=== PATIENT | female | born 1960 | race Caucasian/White ===

== ENCOUNTER 2020-06-18 12:03 | Inpatient (IN) | payer OTHER, SELFPAY ==
[2020-06-18] VITALS (35 sets, daily range): BP systolic 108–161; BP diastolic 67–103; PULSE 53–84; RESP 12–28; TEMP 36.1–36.8; O2SAT 86–97
--- NOTE | ~2020-06-18 | XR_ITS ---
EXAMINATION: XR chest 2V DATE: 06/18/2020 12:24 INDICATION: Chest pain on exertion. TECHNIQUE: PA and lateral views of the chest were obtained. COMPARISON: None FINDINGS: The lungs are clear with no focal airspace opacities, pulmonary edema, pleural effusion or pneumothor ax. The cardiomediastinal silhouette is normal with small bilateral paracardial fat pads.. Mild to mo derate midthoracic predominant spondylosis. IMPRESSION: 1. No acute cardiopulmonary disease. Reviewed, dictated and finalized at location A.
--- NOTE | 2020-06-18 12:05 | ECG_ITS ---
Measurements Intervals [place] Rate: 75 P: 60 ME: 182 QRS: -3 QRSD: 94 T: 220 QT: 404 QTc: 453 Interpretive Statements SINUS RHYTHM BORDERLINE R WAVE PROGRESSION, ANTERIOR LEADS ST-T WAVE ABNORMALITY IN ANTEROLATERAL LEADS- CONSIDER ISCHEMIA BASELINE ARTIFACT- III, AVF, V3-V5 ABNORMAL ECG Electronically Signed On 06-18-2020 16:11:20 CDT by José Miguel Matthews D.O.
[2020-06-18 12:25] LABS: Basophils Absolute Auto 0.1 K/mm3 (0.0-0.1); Basophils Percent Auto 0.5 % (0.2-1.2); Eosinophils Absolute Auto 0.1 K/mm3 (0-0.3); Eosinophils Percent Auto 0.8 % (0-4.4); Hematocrit 41.1 % (37.0-47.0); Hemoglobin 13.8 g/dL (12.0-15.0); Immature Granulocyte Absolute 0.03 K/mm3 (0.00-0.031); Immature Granulocyte Percent A 0.3 % (0-0.5); Lymphocytes Absolute Auto 3.44 K/mm3 (0.9-3.2); Lymphocytes Percent Auto 35.8 % (18.3-44.2); Mean Corpuscular HGB Conc 33.6 g/dl (32-36); Mean Corpuscular Hemoglobin 29.8 pg (26-34); Mean Corpuscular Volume 88.8 fl (80-100); Mean Platelet Volume 9.3 fl (7.4-10.4); Monocytes Absolute Auto 0.4 K/mm3 (0.1-0.6); Monocytes Percent Auto 4.6 % (2.6-8.5); Neutrophils Absolute Auto 5.6 K/mm3 (1.3-6.7); Platelet Count Result 278 k/mm3 (150-375); Red Blood Count 4.63 M/mm3 (4.2-5.4); Red Cell Distribution Width 13.3 % (11.5-14.5); White Blood Count 9.6 K/mm3 (4.5-10.0)
[2020-06-18 12:39] LABS: Anion Gap 8 mmol/L (8-16); Blood Urea Nitrogen 15 mg/dL (7-17); Carbon Dioxide 27 mmol/L (22-30); Chloride 105 mmol/L (98-107); Estimated CRCL calculation 60 ml/min; Estimated Glomerular Filt Rate > 60; Glucose 171 mg/dL (65-105); Potassium 3.5 mmol/L (3.4-5.0); Sodium 140 mmol/L (137-145)
[2020-06-18 12:41] LABS: INR 0.9; Prothrombin Time 12.5 Seconds (11.1-14.7)
[2020-06-18 12:42] LABS: Partial Thromboplastin Time 27.7 SECONDS (22.3-36.8)
--- NOTE | 2020-06-18 12:46 | PC.NURSE ---
Dr. Edgar at bedside for pt assessment.
[2020-06-18] MEDS: ASPIRIN 81 MG CHEWABLE TABLET 324 MG PO (12:56)
[2020-06-18 13:03] LABS: Troponin I 0.318 ng/mL (0.000-0.034)
--- NOTE | 2020-06-18 13:06 | ED.CHESTPAIN ---
HPI - Chest Pain General Chief Complaint: Chest Pain Stated Complaint: think i had a mild heart attack yesterday Time Seen by Provider: 06/18/20 12:12 Source: patient and family Mode of arrival: ambulatory Limitations: no limitations History of Present Illness HPI narrative: Patient is 59 years old white female presents with retrosternal chest pain started yesterday while eating. [place] like food stuck in her esophagus lasted for 5 minutes, subsequently developed numbness of the right hand, headache, not feeling well generalized weakness, and feeling like she got washed out. The symptoms continued all day long yesterday and this morning. Currently patient complaining of retrosternal pressure feeling pain 3 out of 10. Denies any shortness of breath. Patient does not have any coronary risk factors, patient does not take medicine, does not smoke or drink. Related Data Home Medications Medication Instructions Recorded Confirmed No Home Medications 09/08/19 09/08/19 Allergies Allergy/AdvReac Type Severity Reaction Status Date / Time No Known Allergies Allergy Verified 06/18/20 12:04 Review of Systems Review of Systems: Narrative: CONSTITUTIONAL: Denies fever, chills, or sweats. EYES: Denies visual changes, redness, or discharge. ENT: Denies rhinorrhea, congestion, sore throat, or otalgia. CARDIOVASCULAR: Denies chest pain, palpitations, or edema. RESPIRATORY: Denies cough or dyspnea. GASTROINTESTINAL: Denies abdominal pain, nausea, vomiting, or diarrhea. GENITOURINARY: Denies dysuria or hematuria. SKIN: Denies rash or itching. MUSCULOSKELETAL: Denies back pain, joint pain, or myalgia. NEUROLOGIC: Denies headache, numbness, or weakness. PSYCHIATRIC: Denies anxiety or depression. [facility] Past Medical History Medical History Cervical spondylosis Chronic back pain HLD (hyperlipidemia) Hypertension Normal colonoscopy (~2012) Thyroid nodule Family History Family History Other Cerebrovascular accident Family history of congestive heart failure Social History Social History Smoking status: Never smoker Gender identity (if verbalized by the patient): Female Exam Narrative: Exam Narrative: General appearance: Well-developed, well-nourished Skin: Normal color Head: Normocephalic, nontraumatic Eyes: Clear conjunctiva ENT: Oropharynx normal, ears normal, nose normal Neck: Supple, nontender Chest and respiratory: Airway patent, no respiratory distress, no accessory muscle use Heart: Regular rate/rhythm Abdomen: Soft, nontender, no organomegaly, quiet bowel sounds Vascular: Normal peripheral pulses, normal capillary refill. Musculoskeletal: Normal range of motion, nontender back Neurologic: Alert and oriented ?3, [employer] is normal as tested, no gross motor deficit Course Course Emergency Course: Stable Consultations Consultation #1: DR LEEANN GIBSON Date: 06/18/20 Time: 14:53 Vital Signs Vital signs: Vital Signs Pulse Rate 78 06/18/20 12:11 Respiratory Rate 13 06/18/20 12:11 Pulse Oximetry 95 06/18/20 12:11 Temperature 36.8 C 06/18/20 12:14 Pulse Rate 71 06/18/20 13:45 Respiratory Rate 13 06/18/20 13:45 Blood Pressure 154/78 H 06/18/20 13:26 Pulse Oximetry 94 06/18/20 13:45 MDM - Chest Pain MDM Narrative Medical decision making narrative: Patient presents with chest pain. Could be secondary to esophageal obstruction which resolved in 5 minutes or coronary artery syndrome or anxiety related symptoms. Labs, EKG, chest x-ray Lab Data Result diagr
--- NOTE | 2020-06-18 13:14 | PC.NURSE ---
Provider at bedside to discuss results with pt.
[2020-06-18] MEDS: MORPHINE SULFATE (*CRX) 4 MG/ML INJ IV PUSH (13:20)
[2020-06-18] MEDS: ONDANSETRON INJ 4 MG/2 ML VIAL IV PUSH (13:20)
[2020-06-18] MEDS: METOPROLOL TARTRATE 25 MG TABLET PO ×2 (13:21→21:00)
[2020-06-18] MEDS: NITROGLYCERIN OINTMENT 1 INCH DOSE TRANSDERM (13:21)
[2020-06-18] MEDS: HEPARIN SOD/D5W 100 UNITS/ML 25,000 UNITS/250 ML BAG 7 UNITS IV CONT (14:25)
[2020-06-18] MEDS: HEPARIN SODIUM 5,000 UNITS/ML VIAL 3500 UNITS IV PUSH (14:25)
--- NOTE | 2020-06-18 15:09 | PM.CNCAR ---
Assessment and Plan Assessment and plan (1) Acute non-ST elevation myocardial infarction (NSTEMI): Code(s): I21.4 - Non-ST elevation (NSTEMI) myocardial infarction Status: Acute Assessment and Plan: Middle-aged healthy female with few risk factors for CAD admitted with prolonged chest discomfort starting yesterday. She appears to have a non-STEMI with EKG changes and elevated troponin. She is feeling much better, free of pain, after above treatment. Recommendation: Continue aspirin metoprolol and heparin Add statin Add lisinopril Check lipids EKG in the morning Cardiac catheterization on Saturday. If the patient becomes unstable will do the heart catheterization over the weekend with the emergency bottle label inspector team. Spoke to patient and , also spoke to son in law Kobe who is an EMT by phone. (2) Elevated blood sugar: Code(s): R73.9 - Hyperglycemia, unspecified Status: Acute Assessment and Plan: Blood sugar of 171 noted, check A1c (3) Elevated blood pressure reading: Code(s): R03.0 - Elevated blood-pressure reading, without diagnosis of hypertension Status: Acute Assessment and Plan: blood pressure was elevated on admission to the ER but has improved. 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 Edgar in the emergency room and the hospitalists for my advice and opinion regarding her non-STEMI in consultation. While eating lunch yesterday the patient developed some substernal discomfort like she had something stuck in her esophagus. This lasted all day and she also felt washed out, with a headache, a little tingling in the Right hand and a little nauseated. She has a history of GERD, and had some dietary indiscretions recently so thought this was GI discomfort this morning she found the discomfort was still present, about a 3/10. She had to go tell her 96-year-old mother that 1 of the mother's siblings had , and then came to the emergency room for evaluation. She was found to have a troponin of 0.3 and T-wave inversion in V 4 through V6 consistent with a non-STEMI. She was given nitro paste, metoprolol 25 mg p.o. x1, morphine aspirin and now is feeling better. She has been started on heparin drip. Previously the patient had no exertional limitations. has never needed treatment for hypertension, diabetes, or hyperlipidemia there blood pressure recently has been a little higher than normal for her. Nonsmoker. No family history of CAD. 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 Review of Systems Constitutional: Constitutional: Reports fatigue, Reports lethargy and Reports weakness Eyes: Eyes: Reports no additional eye complaints ENT: Denies nasal congestion Cardiovascular: Cardiovascular: Reports chest pain Respiratory: Respiratory: Denies dyspnea and Denies dyspnea on exertion Gastrointestinal: Gastrointestinal: Reports heartburn and Reports nausea Comments: has some problems when she eats gluten, eats a gluten free diet Genitourinary: Genitourinary: Denies hematuria Musculoskeletal: Musculoskeletal: Denies back pain Integumentary/Breasts: Skin/Breast: Denies rash Neurologic: Denies headache(s) Psychiatric: Psychiatric: Reports no additional psychiatric complaints PMFSH Past Medical History Medical History Cervical spondylosis Chronic back pain HLD (hyperlipidemia) Hypertension Normal colonoscop
[2020-06-18 15:45] LABS: Troponin I 0.282 ng/mL (0.000-0.034)
--- NOTE | 2020-06-18 16:18 | ADMGEN ---
This patient, Juliana Mcnulty, was admitted to IMU Room 200-01. Patient/family oriented to hospital policies and general routines including ID bracelet, bed and alarms, visiting hours, pain management, procedures, bathroom and other care routines, personal items, smoking policy, room service/diet, and visiting hours. Information on how to activate the Rapid Response Team has been discussed. Patient/Family are encouraged to report perceived risks to care and to ask questions if they do not understand what they are told or what they should do.
--- NOTE | 2020-06-18 18:00 | PM.IMHP ---
H&P: HPI History of Present Illness Date/Time: 06/18/20 18:00 Chief Complaint: Chest pain. Narrative: This is a pleasant 59-year-old female without any significant medical problems who presented to the emergency department earlier today from home with reports of chest pain. 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 As the rest of the day progressed she continued to have episodes of this discomfort associated with a flushing sensation, fatigue, nausea, and a slight headache. Hit 1 point in time she was having discomfort up into her shoulders and perhaps a bit of numbness. It seemed to be a bit worse when she attempted to lie down to go to bed and she retired to the recliner where she slept a majority of the night. This morning she went to visit her mother who suffers from pretty significant dementia, to inform her that her last sibling had yesterday. The discomfort started once again and thus she came in for evaluation. EKG showed T-wave inversions in V4 through V6 with modest troponin elevation consistent with non STEMI and she is being admitted in this setting. She has never had similar symptoms in the past. No known history of cardiac disease. She has not had exertional chest pain or shortness of breath prior to yesterday. She has been told that her blood pressure is a little bit elevated however she has not taken medication for such. She denies pleuritic pain, PND, orthopnea, and lower extremity edema. At the time my evaluation she feels better after receiving morphine and nitro paste. Review of Systems Review of Systems: Narrative: Twelve systems were reviewed with pertinent positives and negatives as per HPI. She does occasionally get indigestion symptoms but that usually occurs in the middle of the night. She is not on any medication for that. She denies dysphagia. No vomiting. Except as documented, all other systems were reviewed and are negative. [facility] Past Medical History Medical History (Updated 06/18/20 @ 21:32 by Yvette French PA-C) Cervical spondylosis Chronic back pain Non-ST elevation myocardial infarction (NSTEMI) (~06/18/20) Normal colonoscopy (~2012) Thyroid nodule Surgical History Surgical History (Updated 06/18/20 @ 21:32 by Yvette French PA-C) No history of previous surgery Family History Family History Father due to congestive heart failure Mother Alive and well age 96, might have hypertension Other Cerebrovascular accident Family history of congestive heart failure Social History Social History (Updated 06/18/20 @ 21:33 by Yvette French PA-C) Social History: The patient is and lives in [place]. They have 2 grown children. 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 Her is also in is a [place] [employer]. He has tolerated a local high school and now is the academic support director for [employer]. Lifelong nonsmoker. No significant alcohol or illicit substance use. She designates her Devan as her surrogate decision maker and she wishes to be a full code. Smoking status: Never smoker Alcohol intake: never Substance use: never Gender identity (if verbalized by the patient): Female Spiritual care concerns: No Meds Home Medications and Allergies Home Medications Medication Instructions Recorded Confirmed Type No Home Medications 09/08/19 06/18/20 History Allergies Allergy/AdvReac Type Severity Reaction Status Date / Time No Known Allergies Allergy Verified 06/18/20 12:04 Vital Signs Vital Signs - 24 hr 06/18/20 12:11 06/18/20 12:14 06/18/20 12:15 Temperature 98.2 F Pulse Rate 78 76 80 Respiratory Rate 13 16 15 Bloo
[2020-06-18 18:12] LABS: Partial Thromboplastin Time 49.2 SECONDS (22.3-36.8)
[2020-06-18 18:13] LABS: Hemoglobin A1C 5.6 % (<5.7); Magnesium 1.9 mg/dL (1.6-2.3)
[2020-06-18 18:14] LABS: Alanine Aminotransferase 31 U/L (4-35); Albumin Level 3.9 g/dL (3.5-5.1); Alkaline Phosphatase 93 U/L (38-126); Aspartate Amino Transferase 30 U/L (14-36); Bilirubin,Total 0.4 mg/dL (0.2-1.3)
[2020-06-18 18:27] LABS: Troponin I 0.223 ng/mL (0.000-0.034)
[2020-06-18] MEDS: HEPARIN SODIUM 5,000 UNITS/ML VIAL 4000 UNITS IV PUSH (18:32)
--- NOTE | 2020-06-18 19:35 | ECG_ITS ---
Measurements Intervals [place] Rate: 61 P: 51 OR: 194 QRS: -12 QRSD: 91 T: 195 QT: 510 QTc: 517 Interpretive Statements SINUS RHYTHM LEFT VENTRICULAR HYPERTROPHY AND ST-T CHANGE BORDERLINE R WAVE PROGRESSION, ANTERIOR LEADS T WAVE ABNORMALITY IN ANTEROLAT/HIGH LAT LEADS- CONSIDER ISCHEMIA ABNORMAL ECG Electronically Signed On 06-19-2020 7:30:01 CDT by José Miguel Matthews D.O.
[2020-06-18] MEDS: MORPHINE SULFATE (*CRX) 2 MG/ML INJ 1 MG IV PUSH (19:47)
[2020-06-18] MEDS: NITROGLYCERIN SL 0.4 MG TABLET SUBLINGUAL (21:54)
[2020-06-19] VITALS (18 sets, daily range): BP systolic 118–145; BP diastolic 69–96; PULSE 56–81; RESP 14–20; TEMP 36.1–36.9; O2SAT 93–100
[2020-06-19] MEDS: NITROGLYCERIN OINTMENT 1 INCH DOSE TRANSDERM ×5 (00:38→23:11)
[2020-06-19 00:59] LABS: Partial Thromboplastin Time 61.2 SECONDS (22.3-36.8)
[2020-06-19] MEDS: HEPARIN SODIUM 5,000 UNITS/ML VIAL 2500 UNITS IV PUSH ×4 (01:07→21:03)
[2020-06-19] MEDS: METOPROLOL TARTRATE 25 MG TABLET PO ×3 (05:27→21:03)
[2020-06-19 06:35] LABS: Basophils Percent Auto 0.4 % (0.2-1.2); Eosinophils Absolute Auto 0.1 K/mm3 (0-0.3); Eosinophils Percent Auto 1.3 % (0-4.4); Hematocrit 36.9 % (37.0-47.0); Hemoglobin 12.3 g/dL (12.0-15.0); Immature Granulocyte Absolute 0.05 K/mm3 (0.00-0.031); Immature Granulocyte Percent A 0.5 % (0-0.5); Lymphocytes Absolute Auto 3.29 K/mm3 (0.9-3.2); Lymphocytes Percent Auto 32.6 % (18.3-44.2); Mean Corpuscular HGB Conc 33.3 g/dl (32-36); Mean Corpuscular Hemoglobin 29.8 pg (26-34); Mean Corpuscular Volume 89.3 fl (80-100); Mean Platelet Volume 9.3 fl (7.4-10.4); Monocytes Absolute Auto 0.5 K/mm3 (0.1-0.6); Monocytes Percent Auto 5.2 % (2.6-8.5); Neutrophils Absolute Auto 6.1 K/mm3 (1.3-6.7); Platelet Count Result 263 k/mm3 (150-375); Red Blood Count 4.13 M/mm3 (4.2-5.4); Red Cell Distribution Width 13.4 % (11.5-14.5); White Blood Count 10.1 K/mm3 (4.5-10.0)
[2020-06-19 06:39] LABS: Cholesterol 227 mg/dL (0-200); HDL Direct 45 mg/dL; Partial Thromboplastin Time 61.6 SECONDS (22.3-36.8); Triglycerides 361 mg/dL (<150)
[2020-06-19 06:49] LABS: LDL Cholesterol Direct 127 mg/dL
--- NOTE | 2020-06-19 08:00 | ECG_ITS ---
Measurements Intervals [place] Rate: 59 P: 44 AR: 176 QRS: -13 QRSD: 96 T: 198 QT: 560 QTc: 556 Interpretive Statements SINUS BRADYCARDIA VENTRICULAR PREMATURE COMPLEX LEFT VENTRICULAR HYPERTROPHY AND ST-T CHANGE BORDERLINE R WAVE PROGRESSION, ANTERIOR LEADS ST-T WAVE ABNORMALITY IN ANTEROLAT/HIGH LAT LEADS- CONSIDER ISCHEMIA BASELINE ARTIFACT- I, II ABNORMAL ECG Electronically Signed On 06-19-2020 10:06:42 CDT by José Miguel Matthews D.O.
[2020-06-19] MEDS: ATORVASTATIN 40 MG TABLET PO (08:47)
[2020-06-19] MEDS: ASPIRIN 81 MG CHEWABLE TABLET PO (08:47)
--- NOTE | 2020-06-19 09:52 | PM.PNCARD ---
Progress Note: A&P Assessment and Plan (1) Acute non-ST elevation myocardial infarction (NSTEMI): Code(s): I21.4 - Non-ST elevation (NSTEMI) myocardial infarction Status: Acute Assessment and Plan: EKG shows worsening T-wave inversion anterolaterally consistent with an Left anterior descending lesion, or perhaps a left main lesion. Stable, good heart rate and blood pressure. Continue heparin drip, aspirin, statin, beta-candelario, add low-dose lisinopril. Cardiac catheterization tomorrow morning, emergently if patient becomes unstable. Reviewed procedure extensively with the patient. Reviewed possible stent, need for DAPT, cannot rule out possible CABG, possible transfer to another facility, possible medical therapy for CAD. Likely we will be here until Saturday, likely off work for 2 weeks. (2) QT prolongation: Code(s): R94.31 - Abnormal electrocardiogram [ECG] [EKG] Status: Acute Assessment and Plan: Noted on today's EKG. Potassium yesterday was borderline low, will supplement and recheck K+ and Mg++ DC Zofran (3) HLD (hyperlipidemia): Code(s): E78.5 - Hyperlipidemia, unspecified Status: Acute Assessment and Plan: Mixed hyperlipidemia noted. Started on statin therapy, atorvastatin 40 mg daily. (4) Elevated blood sugar: Code(s): R73.9 - Hyperglycemia, unspecified Status: Acute Assessment and Plan: A1c is 5.6. (5) Elevated blood pressure reading: Code(s): R03.0 - Elevated blood-pressure reading, without diagnosis of hypertension Status: Acute Assessment and Plan: BP doing well this morning. Subjective Date/time seen: 06/19/20 09:52 Interval history: Follow-up for non-STEMI. Middle-aged healthy female with few risk factors for CAD admitted with prolonged chest discomfort starting yesterday. She appears to have a non-STEMI with EKG changes anteriorly and elevated troponin. Date of service 06/19/2020: Some mild chest discomfort last night while talking to her mother on the phone who has mild dementia and was confused. Relieved with subungual TNG. Pain-free this morning. Remains on heparin drip. No bleeding. Troponins: 0.32, 0.28, 0.22 Review of Systems Constitutional: Constitutional: Denies fatigue and Denies lethargy ENT: Denies epistaxis Cardiovascular: Cardiovascular: Reports chest pain, Denies pedal edema, Denies leg edema, Denies lightheadedness and Denies palpitations Respiratory: Respiratory: Denies dyspnea and Denies dyspnea on exertion Gastrointestinal: Gastrointestinal: Denies abdominal pain and Denies hematochezia Genitourinary: Genitourinary: Denies hematuria Musculoskeletal: Musculoskeletal: Reports no additional musculoskeletal complaints Integumentary/Breasts: Skin/Breast: Denies rash Neurologic: Denies confusion Psychiatric: Psychiatric: Reports anxiety Exam Const: General: comfortable and no acute distress HENMT: Mouth: Yes moist mucous membranes Eyes: EOM: EOMs intact bilaterally Neck: Neck: supple Resp: Effort & Inspection: normal respiratory effort Auscultation: clear to auscultation bilaterally Cardio: Rate: regular rate Rhythm: regular rhythm Heart sounds: no murmurs GI: GI Palp: Yes Soft to palpation Neuro: Cognition (Neuro): normal cognition Extrem: General: no edema and no pedal edema Psych: Affect: Anxious affect present Objective Data Vital Signs Vital Signs: Vital Signs - 24 hr 06/18/20 12:11 06/18/20 12:14 06/18/20 12:15 Temperature 98.2 F Pulse Rate 78 76 80 Respiratory Rate 13 16 15 Blood Pressure 156/103 H 161/91 H Pulse Oximetry 95 94 95 06/18/20 12:17 06/18/20 12:30 06/18/20 12:45 Temperature Pulse Rate 81 78 84 Respiratory Rate 13 15 23 H Blood Pressure Pulse Oximetry 9
--- NOTE | 2020-06-19 10:28 | PM.IMPN ---
Progress Note: A&P Assessment and Plan (1) Acute non-ST elevation myocardial infarction (NSTEMI): Code(s): I21.4 - Non-ST elevation (NSTEMI) myocardial infarction Status: Acute Assessment and Plan: The patient presents today for evaluation of chest pain that 1 day prior to arrival. Found to have inverted T-waves in V4 and V6 as well as an elevated troponin consistent with non STEMI. She is currently on a heparin drip with plans for cardiac catheterization on Saturday morning. She has also been started on aspirin, metoprolol, and a statin per Dr. Giles. Her blood pressures have been a bit elevated which should improve with metoprolol. Will continue to monitor those closely for now. Check lipids in a.m.. (2) Elevated blood pressure reading: Code(s): R03.0 - Elevated blood-pressure reading, without diagnosis of hypertension Status: Acute Assessment and Plan: Blood pressure this morning was 134/85. Well controlled at this time. Continue monitoring make adjustments if necessary. (3) Hyperglycemia: Code(s): R73.9 - Hyperglycemia, unspecified Status: Acute Assessment and Plan: Hemoglobin A1c is 5.6%. No underlying diabetes at this time. (4) HLD (hyperlipidemia): Code(s): E78.5 - Hyperlipidemia, unspecified Status: Acute Assessment and Plan: Total cholesterol is elevated, triglycerides are elevated. LDL is 127. She was started on high-dose statin (5) QT prolongation: Code(s): R94.31 - Abnormal electrocardiogram [ECG] [EKG] Status: Acute Assessment and Plan: Continue monitoring. Do not take any QT prolonging medications. Time Spent With Patient Time with patient: 25 - 35 minutes Subjective Date/time seen: 06/19/20 10:28 Interval history: Date of service 06/19/2020: She reports still having some chest discomfort today but it is a lot better. Denies any more nausea, vomiting, abdominal pain, shortness of breath, leg swelling, calf pain, urinary symptoms or any other symptoms at this time. Review of Systems Review of Systems: All systems reviewed & are unremarkable except as noted in HPI and below Exam Narrative: Exam Narrative: General: 59-year-old woman sitting up on the side of the bed talking on the phone. Appears comfortable. In no acute distress. Skin: No jaundice or cyanosis. Good skin turgor. Neck: Full range of motion. Supple. Respiratory: Lungs are clear to auscultation bilaterally. No bony chest wall tenderness. Cardiovascular: The heart has a regular rate and rhythm without murmur. Lower extremities: No lower extremity edema. Distal pulses are easily palpated. No calf tenderness to palpation. Gastrointestinal: The abdomen is soft, nontender and nondistended with active bowel sounds. Psychiatric: Lucid and oriented. Memory intact. Neurologic: No focal deficits. Speech is clear. No facial drooping. Objective Data Vital Signs Vital Signs: Vital Signs - 24 hr 06/18/20 12:11 06/18/20 12:14 06/18/20 12:15 Temperature 98.2 F Pulse Rate 78 76 80 Respiratory Rate 13 16 15 Blood Pressure 156/103 H 161/91 H Pulse Oximetry 95 94 95 06/18/20 12:17 06/18/20 12:30 06/18/20 12:45 Temperature Pulse Rate 81 78 84 Respiratory Rate 13 15 23 H Blood Pressure Pulse Oximetry 95 96 95 06/18/20 13:00 06/18/20 13:01 06/18/20 13:15 Temperature Pulse Rate 83 80 78 Respiratory Rate 26 H 16 28 H Blood Pressure 155/79 H Pulse Oximetry 96 96 96 06/18/20 13:21 06/18/20 13:26 06/18/20 13:30 Temperature Pulse Rate 78 78 72 Respiratory Rate 19 18 Blood Pressure 154/78 H Pulse Oximetry 96 96 06/18/20 13:45 06/18/20 14:00 06/18/20 14:15
[2020-06-19 13:48] LABS: Partial Thromboplastin Time 57.4 SECONDS (22.3-36.8)
[2020-06-19] MEDS: HEPARIN SOD/D5W 100 UNITS/ML 25,000 UNITS/250 ML BAG 12 UNITS IV CONT (14:17)
[2020-06-19] MEDS: POTASSIUM CHLORIDE 20 MEQ TABLET.ER PO ×2 (14:19→18:28)
[2020-06-19 15:25] LABS: Potassium 3.8 mmol/L (3.4-5.0)
[2020-06-19 15:51] LABS: Anion Gap 7 mmol/L (8-16); Blood Urea Nitrogen 17 mg/dL (7-17); Calcium 9.7 mg/dL (8.4-10.2); Carbon Dioxide 26 mmol/L (22-30); Chloride 105 mmol/L (98-107); Estimated CRCL calculation 61 ml/min; Estimated Glomerular Filt Rate > 60; Glucose 106 mg/dL (65-105); Sodium 138 mmol/L (137-145)
[2020-06-19 20:42] LABS: Partial Thromboplastin Time 63.2 SECONDS (22.3-36.8)
[2020-06-20] VITALS (24 sets, daily range): BP systolic 106–135; BP diastolic 58–93; PULSE 55–95; RESP 12–20; TEMP 35.9–36.6; O2SAT 93–100
[2020-06-20 04:48] LABS: Hematocrit 37.6 % (37.0-47.0); Hemoglobin 12.6 g/dL (12.0-15.0); Mean Corpuscular HGB Conc 33.5 g/dl (32-36); Mean Corpuscular Hemoglobin 29.7 pg (26-34); Mean Corpuscular Volume 88.7 fl (80-100); Mean Platelet Volume 9.9 fl (7.4-10.4); Platelet Count Result 285 k/mm3 (150-375); Red Blood Count 4.24 M/mm3 (4.2-5.4); Red Cell Distribution Width 13.2 % (11.5-14.5); White Blood Count 8.6 K/mm3 (4.5-10.0)
[2020-06-20 05:06] LABS: Partial Thromboplastin Time 84.1 SECONDS (22.3-36.8)
[2020-06-20] MEDS: METOPROLOL TARTRATE 25 MG TABLET PO (05:31)
[2020-06-20] MEDS: NITROGLYCERIN OINTMENT 1 INCH DOSE TRANSDERM (05:32)
--- NOTE | 2020-06-20 08:42 | WPDMODSED ---
Moderate Sedation Note-Pt Data Patient Data Diagnosis: Non ST-elevation CO Present Complaint: No complaints Procedure to be performed/Plan: Left heart catheterization Allergies Allergy/AdvReac Type Severity Reaction Status Date / Time No Known Allergies Allergy Verified 06/18/20 12:04 Home Medications Medication Instructions Recorded Confirmed Type No Home Medications 09/08/19 06/18/20 History Current Medications: Active Medications Aspirin (Aspirin 81 Mg Chewable Tablet) 81 mg PO DAILY@0800 [facility] Last Admin: 06/19/20 08:47 Dose: 81 mg Documented by: Atorvastatin Calcium (Atorvastatin 40 Mg Tablet) 40 mg PO DAILY [facility] Last Admin: 06/19/20 08:47 Dose: 40 mg Documented by: Calcium Carbonate (Calcium Carbonate (Tums) 500 Mg (200 Mg Elemental)) 200 mg PO Q4H PRN PRN Reason: Indigestion Heparin Sodium (Porcine) (Heparin Sodium 5,000 Units/Ml Vial) 4,000 units IV PUSH PRN PRN PRN Reason: aPTT less than 55 seconds Last Admin: 06/18/20 18:32 Dose: 4,000 units Documented by: Heparin Sodium (Porcine) (Heparin Sodium 5,000 Units/Ml Vial) 2,500 units IV PUSH PRN PRN PRN Reason: aPTT 55 - 70 seconds Last Admin: 06/19/20 21:03 Dose: 2,500 units Documented by: Heparin Sodium/Dextrose (Heparin Sodium/D5w 100 Units/Ml) 25,000 units in 250 mls @ 13 mls/hr IV CONT .[id number] [facility]; Protocol Last Titration: 06/19/20 21:04 Dose: 1,300 units/hr, 13 mls/hr Documented by: Sodium Chloride (Normal Saline Iv) 500 mls @ 100 mls/hr IV CONT .Q5H [facility] Lisinopril (Lisinopril 5 Mg Tablet) 5 mg PO QAM [facility] Metoprolol Tartrate (Metoprolol Tartrate 25 Mg Tablet) 25 mg PO Q8HR [facility] Last Admin: 06/20/20 05:31 Dose: 25 mg Documented by: Morphine Sulfate (Morphine Sulfate (*Crx) 2 Mg/Ml Inj) 2 mg IV PUSH Q2H PRN PRN Reason: Chest Pain Nitroglycerin (Nitroglycerin Ointment 1 Inch Dose) 1 inch TRANSDERM Q6HR [facility] Last Admin: 06/20/20 05:32 Dose: 1 inch Documented by: Nitroglycerin (Nitroglycerin Sl 0.4 Mg Tablet) 0.4 mg SUBLINGUAL PRN PRN PRN Reason: Chest Pain Last Admin: 06/18/20 21:54 Dose: 0.4 mg Documented by: Potassium Chloride (Potassium Chloride 20 Meq Tablet.Er) 20 meq PO BIDWM RED Last Admin: 06/19/20 18:28 Dose: 20 meq Documented by: Sedation/Anesthesia: No previous sedation/anesthesia problems (including family history). [facility] Past Medical History Medical History (Updated 06/19/20 @ 09:59 by Elaina Giles MD) Cervical spondylosis Chronic back pain Non-ST elevation myocardial infarction (NSTEMI) (~06/18/20) Normal colonoscopy (~2012) Thyroid nodule Surgical History Surgical History (Updated 06/18/20 @ 21:32 by Yvette French PA-C) No history of previous surgery Family History Family History Father due to congestive heart failure Mother Alive and well age 96, might have hypertension Other Cerebrovascular accident Family history of congestive heart failure Social History Social History (Updated 06/18/20 @ 21:33 by Yvette French PA-C) Social History: The patient is and lives in [place]. They have 2 grown children. 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 Her is also in is a [place] [employer] the [employer]. He has tolerated a local high school and now is the executive director global brand marketing for [employer]. Lifelong nonsmoker. No significant alcohol or illicit substance use. She designates her Devan as her surrogate decision maker and she wishes to be a full code. Smoking status: Never smoker Alcohol intake: never Substance use: never Gender identity (if verbalized by the patient): Female Spiritual care concerns: No Mod Sed Physical Exam Physical Exam Pre Procedural Exam: Normal: Appearance, Neck, Throat, Airway, Lungs, Heart Size, Heart Rate, Heart Rhythm, Neuro Exam and Extremities Hours
[2020-06-20] MEDS: lisinopriL 5 MG TABLET PO (09:10)
[2020-06-20] MEDS: ATORVASTATIN 40 MG TABLET PO (09:10)
[2020-06-20] MEDS: ASPIRIN 81 MG CHEWABLE TABLET PO (09:10)
--- NOTE | 2020-06-20 09:19 | PC.NURSE ---
Patient left floor with cardiac cath staff. No distress noted at this time, no complaints of chest pain or shortness of breath. Patient oriented x4.
--- NOTE | 2020-06-20 09:58 | P.PCNCC_ITS ---
Cardiac Cath Procedure Note Date of procedure:: 06/20/20 Performing physician:: Aldair Aleman MD Indication:: Non ST-elevation IA Brief clinical history:: this is a 59-year-old woman without previous cardiac h istory who came into the emergency room over the weekend with some chest pain and has had a modest troponin rise associated with precordial T-wave inversions on her ECG. In this setting angiography has been recommended. Procedure Procedure performed:: Left ventriculography coronary angiography Angio-Seal to right femoral artery Sedation/Medication given:: fentanyl 50 mg Versed 2 mg case start time 9:36 a.m. case end time 9:54 a.m. sedation provided by Darya Elam RN, trained observer Access site:: right femoral artery Estimated blood loss:: 10-15 cc Procedure note:: patient was brought to the cardiac catheterization lab in the postabsorptive state the right femoral triangle was prepared and draped in the usual fashion. Anesthesia was provided with 1% lidocaine infiltrated locally. Using the modified Seldinger technique the femoral artery was punctured and a 5 [place] vascular sheath was placed. After this I used a 5 [place] angled pigtail catheter to perform left ventriculography and to measure left-sided hemodynamics and pullback pressures across the aortic valve. After this a standard 5 [place] JR4 catheter was used to engage inject the right coronary artery. Following this a standard 5 [place] FL4 catheter was used to engage and inject the left coronary artery in multiple projections. After this the angiogram was done of the femoral artery through the sheath and a 6 [place] Angio-Seal device was used to secure hemostasis with a good result. Patient was taken to the holding area for post cath recovery she left the laborer marine terminal with no complication and no evidence of a groin hematoma. Findings:: Hemodynamics: Central aortic pressure is 128/64 left ventricle 128/5 end-diastolic is 14 there is no gradient on pullback across the aortic valve. Left ventricle: The LV is normal in size. The apical segment of the LV is hypodynamic but not akinetic the remainder of the LV contracts normally with a global ejection fraction visually estimated to be 55%. The left main coronary artery is widely patent the left anterior descending is a moderate caliber artery extending down to around the apex. The majority of the LAD and its diagonal and septal branches are angiographically normal. The very terminal apical portion of the LAD has atherosclerotic stenosis of about 80%. There was MITZI 3 flow in the LAD at this point. This size terminal segment of the LAD is at most a 1.5 mm artery circumflex is a large caliber vessel giving rise to the marginal branches and posterior branch. The circumflex system and its branches are smooth and angiographically normal in appearance right coronary artery is large caliber dominant to the posterior circulation the right coronary artery is smooth and angiographically normal in appearance Conclusion:: 1. single-vessel coronary artery disease with approximately 80% stenosis in the terminal apical portion of the LAD no other angiographic abnormalities. This segment of the LAD detailed above is quite small. 2. Apical hypokinesia because of the LAD lesion described above with overall normal ejection fraction. Aldair Aleman MD FACC
[2020-06-20] MEDS: ACETAMINOPHEN 500 MG TABLET PO (10:59)
--- NOTE | 2020-06-20 11:40 | PC.NURSE ---
Patient returned to room with chest pain center staff at 1135. Patient to remain on 2 hours of bedrest, ending at 1155. Dressing to right groin soft, dry and intact, pedal pulse strong and palpable. No complaints of chest pain or shortness of breath at this time.
--- NOTE | 2020-06-20 11:46 | SUR.PHASEII ---
Patient transported via bed to IMU. VSS and obtained upon transfer. IMU RN Kaleigh at bedside with this CCL RN to assess R groin site and distal pulse together. Patient updated on plan of care and verbalizes understanding.
[2020-06-20] MEDS: SODIUM CHLORIDE 0.9% IV 1,000 ML 125 ML IV CONT (12:01)
[2020-06-20] MEDS: POTASSIUM CHLORIDE 20 MEQ TABLET.ER PO ×2 (13:06→18:33)
--- NOTE | 2020-06-20 13:19 | PM.IMPN ---
Progress Note: A&P Assessment and Plan (1) Acute non-ST elevation myocardial infarction (NSTEMI): Code(s): I21.4 - Non-ST elevation (NSTEMI) myocardial infarction Status: Acute Assessment and Plan: The patient presents to ER for evaluation of chest pain that 1 day prior to arrival. Found to have inverted T-waves in V4 and V6 as well as an elevated troponin consistent with non STEMI. She was placed on a heparin drip and underwent a cardiac cath today by Dr. Aleman showing single-vessel coronary artery disease with approximately 80% stenosis in the terminal apical portion of the LAD no other angiographic abnormalities. Apical hypokinesia because of the LAD lesion described above with overall normal ejection fraction. Continue on aspirin, metoprolol, and a statin per Dr. Giles. Will continue to monitor those closely for now. (2) Elevated blood pressure reading: Code(s): R03.0 - Elevated blood-pressure reading, without diagnosis of hypertension Status: Acute Assessment and Plan: Blood pressure this morning was 126/77. Well controlled at this time. Continue monitoring make adjustments if necessary. (3) Hyperglycemia: Code(s): R73.9 - Hyperglycemia, unspecified Status: Acute Assessment and Plan: Hemoglobin A1c is 5.6%. No underlying diabetes at this time. (4) HLD (hyperlipidemia): Code(s): E78.5 - Hyperlipidemia, unspecified Status: Acute Assessment and Plan: Total cholesterol is elevated, triglycerides are elevated. LDL is 127. She was started on high-dose statin (5) QT prolongation: Code(s): R94.31 - Abnormal electrocardiogram [ECG] [EKG] Status: Acute Assessment and Plan: Continue monitoring. Do not take any QT prolonging medications. Additional Plan Time Spent With Patient Time with patient: 25 - 35 minutes Subjective Date/time seen: 06/20/20 13:19 Interval history: Date of service 06/19/2020: She reports a headache since her cath procedure as well as slight nausea and feeling tired. Denies any more chest pain. Denies vomiting, abdominal pain, shortness of breath, leg swelling, calf pain, urinary symptoms or any other symptoms at this time. Review of Systems Review of Systems: All systems reviewed & are unremarkable except as noted in HPI and below Exam Narrative: Exam Narrative: General: 59-year-old woman sitting up in bed with her at bedside. Appears comfortable. In no acute distress. Skin: No jaundice or cyanosis. Good skin turgor. Neck: Full range of motion. Supple. Respiratory: Lungs are clear to auscultation bilaterally. No bony chest wall tenderness. Cardiovascular: The heart has a regular rate and rhythm without murmur. Lower extremities: No lower extremity edema. Distal pulses are easily palpated. No calf tenderness to palpation. Gastrointestinal: The abdomen is soft, nontender and nondistended with active bowel sounds. Psychiatric: Lucid and oriented. Memory intact. Neurologic: No focal deficits. Speech is clear. No facial drooping. Objective Data Vital Signs Vital Signs: Vital Signs - 24 hr 06/19/20 14:00 06/19/20 14:20 06/19/20 16:00 Temperature 98.5 F Pulse Rate 63 77 69 Respiratory Rate 14 Blood Pressure 126/72 Pulse Oximetry 100 06/19/20 18:00 06/19/20 20:00 06/19/20 21:03 Temperature 97.8 F Pulse Rate 75 80 74 Respiratory Rate 20 Blood Pressure 145/77 H Pulse Oximetry 94 06/19/20 22:00 06/19/20 23:39 06/20/20 00:00 Temperature 97.5 F L Pulse Rate 72 81 71 Respiratory Rate 20 Blood Pressure 133/96 H Pulse Oximetry 93 06/20/20 02:00 06/20/20 04:00 06/20/20 05:31 Temperature 97.4
[2020-06-20 15:44] LABS: Magnesium 2.1 mg/dL (1.6-2.3)
[2020-06-20] MEDS: ACETAMINOPHEN 325 MG TABLET 650 MG PO (16:04)
[2020-06-21] VITALS (7 sets, daily range): BP systolic 107–129; BP diastolic 59–74; PULSE 62–73; RESP 18–20; TEMP 36.4–36.6; O2SAT 96–98
[2020-06-21 05:12] LABS: Anion Gap 7 mmol/L (8-16); Blood Urea Nitrogen 13 mg/dL (7-17); Calcium 9.3 mg/dL (8.4-10.2); Carbon Dioxide 25 mmol/L (22-30); Chloride 109 mmol/L (98-107); Estimated CRCL calculation 61 ml/min; Estimated Glomerular Filt Rate > 60; Glucose 109 mg/dL (65-105); Potassium 4.1 mmol/L (3.4-5.0); Sodium 141 mmol/L (137-145)
[2020-06-21] MEDS: ASPIRIN 81 MG CHEWABLE TABLET PO (08:18)
[2020-06-21] MEDS: ISOSORBIDE MONONITRATE 30 MG TAB.ER.24H PO (08:19)
[2020-06-21] MEDS: lisinopriL 5 MG TABLET PO (08:19)
[2020-06-21] MEDS: ATORVASTATIN 40 MG TABLET PO (08:19)
[2020-06-21] MEDS: METOPROLOL SUCCINATE EXT REL 50 MG TABCR PO (08:19)
[2020-06-21] MEDS: POTASSIUM CHLORIDE 20 MEQ TABLET.ER PO (08:19)
--- NOTE | 2020-06-21 08:53 | PM.PNCARD ---
Progress Note: A&P Assessment and Plan (1) Acute non-ST elevation myocardial infarction (NSTEMI): Code(s): I21.4 - Non-ST elevation (NSTEMI) myocardial infarction Status: Acute Assessment and Plan: Patient with non-STEMI, ACS, 80% distal Left anterior descending stenosis with some apical hypokinesis, doing well with no recurrent angina. Reviewed activity level in follow-up; Off work for 2 weeks, okay to start walking after the 1st week, will see about enrolling in cardiac rehab. Has a office follow-up scheduled. Patient is somewhat adverse to medications and I reviewed standard medical care post IL is likely to reduce the risk of recurrent heart problems. Recommend dual anti-platelet therapy for 1 year unless there are problems with it, beta-candelario for a year, long-term aspirin and statin therapy etc. Sublingual nitro p.r.n.. (2) QT prolongation: Code(s): R94.31 - Abnormal electrocardiogram [ECG] [EKG] Status: Acute Assessment and Plan: Likely related to ischemia and probably will resolve, not present on admission. (3) HLD (hyperlipidemia): Code(s): E78.5 - Hyperlipidemia, unspecified Status: Acute Assessment and Plan: Mixed hyperlipidemia noted. Started on statin therapy, atorvastatin 40 mg daily. (4) Elevated blood sugar: Code(s): R73.9 - Hyperglycemia, unspecified Status: Acute Assessment and Plan: A1c is 5.6. (5) Elevated blood pressure reading: Code(s): R03.0 - Elevated blood-pressure reading, without diagnosis of hypertension Status: Acute Assessment and Plan: BP doing well this morning. Subjective Date/time seen: 06/21/20 08:53 Interval history: Follow-up for non-STEMI. Middle-aged healthy female with few risk factors for CAD admitted with prolonged chest discomfort starting yesterday. She appears to have a non-STEMI with EKG changes anteriorly and elevated troponin. 06/19/2020: Some mild chest discomfort last night while talking to her mother on the phone who has mild dementia and was confused. Relieved with subungual TNG. Pain-free this morning. Remains on heparin drip. No bleeding. Troponins: 0.32, 0.28, 0.22 Date of service 06/21/2020: Patient's cardiac catheterization yesterday showed 80% stenosis of the distal Left anterior descending which was small (at most a 1.5 mm artery) and medical therapy recommended. Hypokinetic apex, EF 55%. Patient is doing well, glad she has not had worse heart disease. Many questions about the influence of stress on heart disease, gluten problems with heart disease, activity post IL, follow-up, and medications. Review of Systems Constitutional: Constitutional: Denies fatigue and Denies weakness ENT: Denies epistaxis Cardiovascular: Cardiovascular: Denies chest pain, Denies pedal edema and Denies lightheadedness Respiratory: Respiratory: Denies dyspnea Gastrointestinal: Gastrointestinal: Denies abdominal pain Neurologic: Reports system reviewed and no additional complaints, except as documented Psychiatric: Psychiatric: Reports no additional psychiatric complaints Exam Const: General: comfortable and no acute distress; No confusion Orientation/consciousness: No confusion HENMT: Mouth: Yes moist mucous membranes Eyes: EOM: EOMs intact bilaterally Neck: Neck: supple Resp: Effort & Inspection: normal respiratory effort Auscultation: clear to auscultation bilaterally Cardio: Rate: regular rate Rhythm: regular rhythm Heart sounds: no murmurs Other: 3+ dorsalis pedis pulses GI: Inspection: non-distended Skin: General skin exam: normal color and no rashes or lesions noted Neuro: General: No confusion Cognition (Neuro): normal cognition Speech: normal speech Motor exam (neuro): Normal motor muscle t
--- NOTE | 2020-06-21 08:59 | PM.DS ---
DS: Admitting Diagnosis Admitting Diagnosis Admitting Diagnosis: NSTEMI DS: Discharge Diagnosis Discharge Diagnosis (1) Acute non-ST elevation myocardial infarction (NSTEMI): Code(s): I21.4 - Non-ST elevation (NSTEMI) myocardial infarction Status: Acute Assessment and Plan: The patient presents to ER for evaluation of chest pain that 1 day prior to arrival. Found to have inverted T-waves in V4 and V6 as well as an elevated troponin consistent with non STEMI. Cardiac cath per Dr. Aleman on 06/20 showed single-vessel coronary artery disease with approximately 80% stenosis in the terminal apical portion of the LAD no other angiographic abnormalities. Apical hypokinesia because of the LAD lesion described above with overall normal ejection fraction; no plans for intervention and will opted to be treated medically. Patient's symptoms have resolved. Eager to be discharged today. Discussed with Cardiology who is okay for discharge. Plan for d/c today F/u with Cardiology and PCP Continue aspirin, metoprolol, and statin per Cardiology PRN nitro (2) Elevated blood pressure reading: Code(s): R03.0 - Elevated blood-pressure reading, without diagnosis of hypertension Status: Acute Assessment and Plan: Blood pressure improved to 120s sys most recently. Well controlled at this time. F/u with PCP and cardiology (3) Hyperglycemia: Code(s): R73.9 - Hyperglycemia, unspecified Status: Acute Assessment and Plan: Hemoglobin A1c is 5.6%. No underlying diabetes at this time. F/u with PCP (4) HLD (hyperlipidemia): Code(s): E78.5 - Hyperlipidemia, unspecified Status: Acute Assessment and Plan: Total cholesterol is elevated, triglycerides are elevated. LDL is 127. She was started on high-dose statin Continue statin per Cardiology (5) QT prolongation: Code(s): R94.31 - Abnormal electrocardiogram [ECG] [EKG] Status: Acute Assessment and Plan: Continue monitoring. Do not take any QT prolonging medications. DS: Summary Hospital Course Reason for hospitalization: NSTEMI Hospital Course: Date of arrival: 06/18/20 Date of discharge: 06/21/20 Patient is a pleasant 59-year-old female without any significant medical problems who presented to the emergency department on 06/18 from home with reports of chest pain. While in the ED, EKG showed T-wave inversions in V4 through V6 with modest troponin elevation consistent with non STEMI. Troponin level was 0.318 (serial levels 0.282, 0.223). CXR was grossly unremarkable. Patient admitted under this setting of suspected NSTEMI. Dr. Giles (cardiology) was consulted from the ED. She was placed on a heparin drip. Please see H&P for further details. Patient was admitted to the hospitalist service for further management/treatment. She was started on aspirin, metoprolol, lisinopril and a high dose statin per Dr. Giles. Given that patient was hemodynamically stable, cardiac catheterization was deferred to 06/20 with findings of 'single-vessel coronary artery disease with approximately 80% stenosis in the terminal apical portion of the LAD no other angiographic abnormalities; this segment of the LAD detailed above is quite small.' Further Cath results below. Patient's chest pain had improved. Plan was for her to follow up with Cardiology after discharge. Per Cardiology recommendations, she was to continue on metoprolol, lisinopril, aspirin, plavix, atorvastatin, isosorbide mononitrate and SL nitro prn. She was to follow up for her PCP as well. Patient agreeable and comfortable with plan for discharge. Patient hemodynamically stable and in improved condition for discharge on 06/21
[2020-06-21] MEDS: CLOPIDOGREL BISULFATE 75 MG TABLET PO (12:00)
== END 2020-06-21 12:00 | disposition home or self-care (01) | DRG 282 ==
LOC: ANHED 15:10 → ANHIMU 16:28
PROVIDERS: Emergency Medicine; Internal Medicine Cardiovascular Disease; Physician Assistant; Specialist; Admitting Provider Internal Medicine; Emergency Provider Emergency Medicine; PCP Family Medicine; Visit Provider Physician Assistant
PROC: 4A023N7 Measurement of Cardiac Sampling and Pressure, Left Heart, Percutaneous Approach (ICD-10-PCS; CPT 93452; principal; 2020-06-20 09:00)
PROC: 4A023N7 Measurement of Cardiac Sampling and Pressure, Left Heart, Percutaneous Approach (ICD-10-PCS; 2020-06-20 09:00)
DX: I21.4 Non-ST elevation (NSTEMI) myocardial infarction (principal); R03.0 Elevated blood-pressure reading, without diagnosis of hypertension; I25.10 Atherosclerotic heart disease of native coronary artery without angina pectoris; R73.9 Hyperglycemia, unspecified; E78.5 Hyperlipidemia, unspecified; M47.812 Spondylosis without myelopathy or radiculopathy, cervical region; K21.9 Gastro-esophageal reflux disease without esophagitis
CPT/HCPCS: 36415; 71046; 80048; 80061; 80076; 83036; 83735; 84484; 85025; 85027; 85610; 85730; 93005; 93458; 96365; 96375; 99291; A9270; C1760; C1887; C1894; G0269; J0131; J1644; J2250; J2270; J2405; J3010; J7030; J7040

== ENCOUNTER 2021-01-02 01:43 | Day surgery (SDC) | payer OTHER, SELFPAY ==
[2020-11-21 14:36] VITALS: BMI 34.5
[2020-12-27 12:41] VITALS: BMI 34.5
--- NOTE | 2021-01-02 07:01 | PM.HPGS ---
History of Present Illness History of Present Illness Consent: Risks, benefits, and alternatives have been discussed and questions answered. Patient agrees to proceed with procedure. Chief complaint: dysphagia Narrative: Juliana Mcnulty is a 60 year old female with dysphagia for solid food. She also has chest pain. She was found earlier this year to have narrowing of a portion of the LAD. Having started Plavix and isosorbide she is improved but still gets some discomfort in the chest. This has discomfort will usually last for an hour or so. Before beginning isosorbide, she will have pain all day at times. She does get heartburn primarily when lying down, at night. She is not on medication for that at this time Review of Systems Review of Systems: All systems reviewed & are unremarkable except as noted in HPI and below PMFSH Past Medical History Medical History Cervical spondylosis Chronic back pain Dysphagia Mild congestive heart failure Non-ST elevation myocardial infarction (NSTEMI) (~06/18/20) Normal colonoscopy (~2012) Obese QT prolongation Thyroid nodule Surgical History Surgical History No history of previous surgery Family History Family History Father due to congestive heart failure Mother Alive and well age 96, might have hypertension Other Cerebrovascular accident Family history of congestive heart failure Social History Social History Social History: The patient is and lives in [place]. They have 2 grown children. 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 She designates her Devan as her surrogate decision maker and she wishes to be a full code. Smoking status: Never smoker Alcohol intake: never Substance use: never Substance use type: does not use Living arrangements: with family Gender identity (if verbalized by the patient): Female Spiritual care concerns: No Meds Home Medications and Allergies Home Medications Medication Instructions Recorded Confirmed Type aspirin [Aspirin Low Dose] 81 mg PO DAILY #30 tablet 06/21/20 11/21/20 Rx atorvastatin 40 mg PO DAILY #30 tablet 06/21/20 11/21/20 Rx calcium carbonate 200 mg PO Q4H PRN #0 tablet 06/21/20 11/21/20 Rx clopidogrel 75 mg PO QAM #30 tablet 06/21/20 11/21/20 Rx isosorbide mononitrate 30 mg PO QAM #30 tablet 06/21/20 11/21/20 Rx lisinopril 5 mg PO QAM #30 tablet 06/21/20 11/21/20 Rx metoprolol succinate 50 mg PO QAM #30 tablet 06/21/20 11/21/20 Rx nitroglycerin [Nitrostat] 0.4 mg SUBLINGUAL Q5MIN PRN #25 06/21/20 11/21/20 Rx tablet Allergies Allergy/AdvReac Type Severity Reaction Status Date / Time No Known Allergies Allergy Verified 01/02/21 07:42 Exam Resp: Auscultation: clear to auscultation bilaterally Cardio: Rate: regular rate Rhythm: regular rhythm GI: GI Palp: Yes Soft to palpation and No Tenderness to palpation present (GI) Assessment and Plan Assessment and plan (1) Dysphagia: Code(s): R13.10 - Dysphagia, unspecified Status: Acute Assessment and Plan: EGD with possible biopsy or dilatation or cautery.
[2021-01-02 07:44] VITALS: BP 139/72; PULSE 57; RESP 18; TEMP 36.2; O2SAT 96; BMI 34.5
--- NOTE | 2021-01-02 07:57 | WPDANESEPPF ---
Anes - Initial Pre Proc Eval Procedure: Operation Date: 01/02/21 08:30 Proposed Procedures p Esophagogastroduodenoscopy - Alok Kyle MD Date/Time: 01/02/21 07:57 Surgeon: Alok Kyle MD Pre Op Diagnosis: dysphagia Patient Data Age: 60 Gender: F Height: 1.55 m Weight: 82.9 kg Last Vital Signs Temp 36.2 C L 01/02/21 07:44 Pulse 57 L 01/02/21 07:44 Resp 18 01/02/21 07:44 BP 139/72 01/02/21 07:44 Pulse Ox 96 01/02/21 07:44 Allergies Allergy/AdvReac Type Severity Reaction Status Date / Time No Known Allergies Allergy Verified 01/02/21 07:42 Home Medications Medication Instructions Recorded Confirmed Type aspirin [Aspirin Low Dose] 81 mg PO DAILY #30 tablet 06/21/20 11/21/20 Rx atorvastatin 40 mg PO DAILY #30 tablet 06/21/20 11/21/20 Rx calcium carbonate 200 mg PO Q4H PRN #0 tablet 06/21/20 11/21/20 Rx clopidogrel 75 mg PO QAM #30 tablet 06/21/20 11/21/20 Rx isosorbide mononitrate 30 mg PO QAM #30 tablet 06/21/20 11/21/20 Rx lisinopril 5 mg PO QAM #30 tablet 06/21/20 11/21/20 Rx metoprolol succinate 50 mg PO QAM #30 tablet 06/21/20 11/21/20 Rx nitroglycerin [Nitrostat] 0.4 mg SUBLINGUAL Q5MIN PRN #25 06/21/20 11/21/20 Rx tablet Patient hx anesthesia problems: none Family hx anesthesia problems: none Results Review: All pre-operative results and documents have been reviewed as part of the pre-operative evaluation. [facility] Past Medical History Medical History Cervical spondylosis Chronic back pain Dysphagia Mild congestive heart failure Non-ST elevation myocardial infarction (NSTEMI) (~06/18/20) Normal colonoscopy (~2012) Obese QT prolongation Thyroid nodule Surgical History Surgical History No history of previous surgery Family History Family History Father due to congestive heart failure Mother Alive and well age 96, might have hypertension Other Cerebrovascular accident Family history of congestive heart failure Social History Social History Social History: The patient is and lives in [place]. They have 2 grown children. 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 She designates her Devan as her surrogate decision maker and she wishes to be a full code. Smoking status: Never smoker Alcohol intake: never Substance use: never Substance use type: does not use Living arrangements: with family Gender identity (if verbalized by the patient): Female Spiritual care concerns: No Anes - Eval Final PreProcedure Day of Procedure 01/02/21 07:57 Patient weight: obese Heart: regular rate and rhythm Lungs: clear to auscultation Airway: Mallampati scale class II Neurological: alert and oriented Last oral intake: >/= 8 hours ASA classification: III Emergent: no Anesthetic plan: proceed Anesthesia type and monitoring: general GIVS and standard monitoring Results Review: All pre-operative results and documents have been reviewed as part of the pre-operative evaluation. Informed Consent: The patient's anesthetic plan and its attendant risks and benefits were discussed with the patient/family/POA. Questions were solicited and answers provided to the satisfaction of the patient/family/POA.
[2021-01-02] MEDS: LACTATED RINGERS 1,000 ML 150 ML IV CONT (07:59)
[2021-01-02 08:46] VITALS: BP 103/58; PULSE 61; RESP 20; O2SAT 99
[2021-01-02 08:56] VITALS: BP 103/61; PULSE 71; RESP 21; O2SAT 96
[2021-01-02 09:06] VITALS: BP 104/62; PULSE 68; RESP 21; O2SAT 97
--- NOTE | 2021-01-02 09:15 | SUR.PHASEII ---
dr yancey okayed pt to resume clopidogrel tomorrow jan 03, 2021. pt voiced understanding.
== END 2021-01-02 09:22 | disposition home or self-care (01) ==
PROVIDERS: PCP Family Medicine; Visit Provider Internal Medicine Gastroenterology
PROC: 0DJ08ZZ Inspection of Upper Intestinal Tract, Via Natural or Artificial Opening Endoscopic (ICD-10-PCS; CPT 43235; principal; 2021-01-02 08:30)
DX: R13.10 Dysphagia, unspecified (principal); K21.9 Gastro-esophageal reflux disease without esophagitis; K31.7 Polyp of stomach and duodenum; K29.60 Other gastritis without bleeding; K22.10 Ulcer of esophagus without bleeding; Z79.82 Long term (current) use of aspirin; M47.812 Spondylosis without myelopathy or radiculopathy, cervical region; I25.2 Old myocardial infarction; I50.9 Heart failure, unspecified; E04.1 Nontoxic single thyroid nodule; E66.9 Obesity, unspecified; Z68.34 Body mass index [BMI] 34.0-34.9, adult; I25.10 Atherosclerotic heart disease of native coronary artery without angina pectoris; E78.5 Hyperlipidemia, unspecified
CPT/HCPCS: 43239; 43251; 87081; 88305; J2704; J7120

== ENCOUNTER → 2022-07-06 16:10 | Outpatient (CLI) | payer OTHER, SELFPAY ==
--- NOTE | ~2022-07-06 | XR_ITS ---
XR shoulder RT min 2V DATE: 07/06/2022 16:32 INDICATION: Right shoulder pain TECHNIQUE: 4 views COMPARISON: None FINDINGS: There is osteopenia. No fracture or dislocation, periosteal reaction or bone destruction of the right shoulder. No abnorma l right shoulder soft tissue calcification is noted. IMPRESSION: Osteopenia; otherwise unremarkable Reviewed, dictated and finalized at location A.
--- NOTE | ~2022-07-06 | XR_ITS ---
XR cervical spine 4-5V DATE: 07/06/2022 16:32 INDICATION: Shoulder pain TECHNIQUE: AP, open-mouth, lateral and swimmer views COMPARISON: None FINDINGS: There is straightening of the cervical spine which may be due to muscle spasm. C1 and C2 are normally aligned and the odontoid process is intact. There is failure of segmentation at anterior and posterior elements of C2-3, congenital. There is moderately severe degenerative disc disease and mild retrolisthesis at C5-6. There is moderate to moderately severe degenerative disc disease at C6-7 and C7-T1 No fracture or dislocation or locked facet or prevertebral soft tissue swelling is detected. There is degenerative change at the apophyseal joints throughout the cervical spine. 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
== END ==
PROVIDERS: PCP Physician Assistant; Visit Provider Physician Assistant
DX: M19.011 Primary osteoarthritis, right shoulder (principal); M47.892 Other spondylosis, cervical region
CPT/HCPCS: 72050; 73030

== ENCOUNTER → 2022-11-07 11:01 | Outpatient (CLI) | payer OTHER, SELFPAY ==
--- NOTE | ~2022-11-07 | XR_ITS ---
EXAMINATION: XR lumbar spine min 4V DATE: 11/07/2022 11:14 INDICATION: Dorsalgia, unspecified. TECHNIQUE: 5 views of lumbar spine were obtained. COMPARISON: Lumbar spine MRI 04/20/2016, chest 2 views 06/18/2020 FINDINGS: There are hypoplastic ribs at L1. S1 is a transitional segment. Vertebral body heights and intervertebral disc heights are normal. There are endplate osteophytes at multiple levels. There is m ultilevel facet joint osteoarthritis, severe bilaterally at L5-S1. IMPRESSION: 1. Mild lumbar spondylosis. Reviewed, dictated and finalized at location A. IMPRESSION: 1. Mild lumbar spondylosis.
== END ==
PROVIDERS: PCP Physician Assistant; Visit Provider Physician Assistant
DX: M47.896 Other spondylosis, lumbar region (principal)
CPT/HCPCS: 72110

== ENCOUNTER 2023-12-24 20:12 | Emergency (ER) | payer OTHER, SELFPAY ==
--- NOTE | ~2023-12-24 | CT_ITS ---
Clinical Indication: Chest pain, abdominal pain CT Scan of the Chest, Abdomen, and Pelvis without Contrast: Technique: Contiguous sections were acquired throughout the chest, abdomen, and pelvis without IV con trast administration. Dose reduction technique was used on this scan by utilizing automated exposure control and iterative reconstruction technique. The dose-length product (DLP) was 938.53 mGy-cm. Findings: There is no evidence of any significant mediastinal, hilar or axillary lymphadenopathy. The mediastin al soft tissues appear normal. There is no evidence of pleural or pericardial effusion. 3 mm right middle lobe pulmonary nodule noted (axial image 78). There is linear left basilar pulmonar y scarring. The liver, spleen, pancreas, adrenals and kidneys are within normal limits. Small gallstone noted. No evidence of aortic aneurysm. No lymphadenopathy. No bowel obstruction or bowel wall thickening. There is no evidence to suggest acute appendicitis. Urinary bladder is unremarkable. No pelvic mass seen. No ascites. Impression: Small gallstone. 3 mm right middle lobe pulmonary nodule. According to Fleischner Society criteria, for a low-risk pat ient, no further follow-up required. For a high-risk patient, consider 12 month follow-up CT. Reviewed, dictated and finalized at location . Impression: Small gallstone. 3 mm right middle lobe pulmonary nodule. According to Fleischner Society criter ia, for a low-risk patient, no further follow-up required. For a high-risk delio ent, consider 12 month follow-up CT.
--- NOTE | ~2023-12-24 | XR_ITS ---
EXAMINATION: XR chest 2V DATE: 12/24/2023 20:53 INDICATION: Chest pain TECHNIQUE: PA and lateral views of the chest were obtained. COMPARISON: Chest radiograph dated 06/18/2020 FINDINGS: The lungs remain clear with no focal airspace opacities, pulmonary edema, pleural effusion or pneumot horax. The cardiomediastinal silhouette is normal. Moderate thoracic spondylosis. IMPRESSION: 1. No acute cardiopulmonary disease. Reviewed, dictated and finalized at location A.
--- NOTE | 2023-12-24 20:16 | ECG_ITS ---
Test Date: 2023-12-24 20:25:15 Measurements Intervals [place] Rate: 73 P: 47 ME: 176 QRS: -15 QRSD: 97 T: 16 QT: 413 QTc: 456 Interpretive Statements SINUS RHYTHM DELAYED PRECORDIAL R/S TRANSITION LEFT VENTRICULAR HYPERTROPHY WITH ST-T CHANGE MINIMAL Q WAVES- HIGH LATERAL LEADS BASELINE ARTIFACT- I, II, III, AVR, AVL, AVF, V1-V6 BORDERLINE ECG No previous ECG available for comparison Electronically Signed On 12-25-2023 06:31:50 CDT by José Miguel Matthews D.O.
[2023-12-24 20:42] VITALS: BP 192/94; PULSE 73; RESP 15; TEMP 36.8; O2SAT 98
[2023-12-24 22:59] LABS: Basophils Absolute Auto 0.1 K/mm3 (0.0-0.1); Basophils Percent Auto 0.6 % (0.2-1.2); Eosinophils Absolute Auto 0.2 K/mm3 (0-0.3); Eosinophils Percent Auto 1.6 % (0-4.4); Hematocrit 40.6 % (37.0-47.0); Hemoglobin 13.6 g/dL (12.0-15.0); Immature Granulocyte Absolute 0.05 K/mm3 (0.00-0.031); Immature Granulocyte Percent A 0.4 % (0-0.5); Lymphocytes Absolute Auto 4.35 K/mm3 (0.9-3.2); Lymphocytes Percent Auto 37.6 % (18.3-44.2); Mean Corpuscular HGB Conc 33.5 g/dl (32-36); Mean Corpuscular Hemoglobin 30.3 pg (26-34); Mean Corpuscular Volume 90.4 fl (80-100); Mean Platelet Volume 9.2 fl (7.4-10.4); Monocytes Absolute Auto 0.7 K/mm3 (0.1-0.6); Monocytes Percent Auto 5.8 % (2.6-8.5); Neutrophils Absolute Auto 6.3 K/mm3 (1.3-6.7); Platelet Count Result 315 k/mm3 (150-375); Red Blood Count 4.49 M/mm3 (4.2-5.4); Red Cell Distribution Width 13.5 % (11.5-14.5); White Blood Count 11.6 K/mm3 (4.5-10.0)
[2023-12-24 23:10] LABS: Alanine Aminotransferase 29 U/L (6-35); Albumin Level 4.4 g/dL (3.5-5.1); Alkaline Phosphatase 94 U/L (38-126); Anion Gap 13 mmol/L (4-12); Aspartate Amino Transferase 33 U/L (14-36); Bilirubin,Total 0.3 mg/dL (0.2-1.3); Blood Urea Nitrogen 17 mg/dL (7-17); Calcium 8.9 mg/dL (8.4-10.2); Carbon Dioxide 27 mmol/L (22-30); Chloride 96 mmol/L (98-107); Estimated CRCL calculation 68 ml/min; Estimated Glomerular Filt Rate > 60; Glucose 113 mg/dL (65-110); INR 0.9; Lipase 77 U/L (23-300); Potassium 3.3 mmol/L (3.4-5.0); Prothrombin Time 12.6 Seconds (11.1-14.7); Sodium 136 mmol/L (137-145)
[2023-12-24 23:11] LABS: Partial Thromboplastin Time 26.6 Seconds (22.3-36.8)
[2023-12-24 23:21] LABS: Troponin I < 0.012 ng/mL (0.000-0.034)
[2023-12-24] MEDS: ASPIRIN 81 MG CHEWABLE TABLET 324 MG PO (23:23)
--- NOTE | 2023-12-24 23:38 | ED.GENADULT ---
HPI - General Adult General Chief complaint: Unspecified Stated complaint: I had a heart attack Time Seen by Provider: 12/24/23 23:10 Source: patient Mode of arrival: ambulatory Limitations: no limitations History of Present Illness HPI narrative: Patient is a 63-year-old female who presents to the ER with complaints of chest pain that started early in the day earlier in the day. She reports she has a history of a previous heart attack (5 years ago). Patient reports she has gluten sensitivity and history gastric reflux disease, but is currently unmedicated for her reflux. She reports her symptoms were similar this morning as they were when she had her heart attack. The symptoms include her eating fluid and then it getting stuck in her esophagus. She reports she drank water after it happened this morning and continued to cough to the point where she started vomiting. Patient endorses chest tightness and reports the pain has decreased some but is still present. She denies shortness of breath, other signs/symptoms of illness, or bilateral leg swelling. Related Data Allergies Allergy/AdvReac Type Severity Reaction Status Date / Time No Known Allergies Allergy Verified 12/24/23 20:48 Review of Systems Review of Systems: All systems reviewed & are unremarkable except as noted in HPI and below PMFSH Past Medical History Medical History Cervical spondylosis Chronic back pain Dysphagia Mild congestive heart failure Non-ST elevation myocardial infarction (NSTEMI) (~06/18/20) Normal colonoscopy (~2012) Obese QT prolongation Thyroid nodule Surgical History Surgical History No history of previous surgery Family History Family History Father due to congestive heart failure Mother Alive and well age 96, might have hypertension Other Cerebrovascular accident Family history of congestive heart failure Social History Social History Social History: The patient is and lives in [place]. They have 2 grown children. 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 She designates her Devan as her surrogate decision maker and she wishes to be a full code. Smoking status: Never smoker Alcohol intake: never Substance use: never Substance use type: does not use Lack of Transportation: No Lack of Food: Never True Current Housing: I Have Housing Concerned About Future Housing: No Difficulty Paying Gas/Electric Bills: No Difficulty Paying for Meds: No Currently Unemployed: No Difficulty w/ Childcare or Family Care: No Living arrangements: with family Gender identity (if verbalized by the patient): Female Spiritual care concerns: No Agree to blood products: Yes Exam Narrative: GENERAL: Well appearing, well-nourished, non-toxic, in no acute distress. HEAD: Normocephalic, atraumatic. NECK: Supple. No adenopathy, no masses. RESPIRATORY: Airway patent, respirations nonlabored. Clear to auscultation bilaterally, no rales, rhonchi, wheezing. CARDIOVASCULAR: Regular rate and rhythm without murmurs, rubs, or gallops. Peripheral pulses 2+ and equal bilaterally. ABDOMINAL: Soft, nontender, nondistended, no hepatosplenomegaly. Normoactive BS. MUSCULOSKELETAL: Moves all extremities. Strength/ROM intact without gross deformities. SKIN: Warm, dry, normal color. No rashes. NEURO: A&O X3. Speech clear. Cranial nerves II-XII grossly intact. No ataxic movements. PSYCHIATRIC: Appropriate mood and affect. Normal interaction. Course Vital Signs Vital signs: Vital Signs Temperature 36.8 C 12/24/23 20:42 Pulse Rate 73 12/24/23 20:42 Respiratory Rate 15 0
[2023-12-25] VITALS (7 sets, daily range): BP systolic 138–186; BP diastolic 75–85; PULSE 60–72; RESP 14–19; O2SAT 92–98
[2023-12-25] MEDS: FAMOTIDINE 20 MG/2 ML VIAL IV PUSH (00:11)
[2023-12-25] MEDS: PANTOPRAZOLE SODIUM IV 40 MG VIAL IV PUSH (00:11)
[2023-12-25] MEDS: NITROGLYCERIN SL 0.4 MG TABLET SUBLINGUAL (00:11)
--- NOTE | 2023-12-25 00:15 | PC.NURSE ---
0015 - first dose of nitro administered. BP 178/69. Pt reports slight relief in chest tightness. Pt states she does not want to take 2nd or 3rd dose.
[2023-12-25 01:10] LABS: D Dimer 0.31 ug/mL (<0.48)
[2023-12-25 02:23] LABS: Troponin I < 0.012 ng/mL (0.000-0.034)
[2023-12-25] MEDS: SODIUM CHLORIDE 0.9% IV 1,000 ML 999 ML IV CONT (02:30)
[2023-12-25 02:46] LABS: NT Pro B Type Natriuretic Pept 118 pg/mL (19.9-100)
[2023-12-25 04:05] LABS: Hemoglobin A1C 6.2 % (<5.7)
== END 2023-12-25 04:53 | disposition home or self-care (01) ==
PROVIDERS: Emergency Medicine; Emergency Provider Registered Nurse; PCP Family Medicine
DX: R07.89 Other chest pain (principal); I50.9 Heart failure, unspecified; I25.2 Old myocardial infarction; K21.9 Gastro-esophageal reflux disease without esophagitis; K90.41 Non-celiac gluten sensitivity; Z79.82 Long term (current) use of aspirin; M47.814 Spondylosis without myelopathy or radiculopathy, thoracic region; K57.90 Diverticulosis of intestine, part unspecified, without perforation or abscess without bleeding; K80.20 Calculus of gallbladder without cholecystitis without obstruction; R91.1 Solitary pulmonary nodule; I51.7 Cardiomegaly
CPT/HCPCS: 36415; 71046; 71250; 74176; 80053; 83036; 83690; 83880; 84484; 85025; 85380; 85610; 85730; 93005; 96361; 96374; 96375; 99284; A9270; J2470; J7030

== ENCOUNTER 2024-04-22 01:12 | Day surgery (SDC) | payer MEDICARE, SELFPAY ==
[2024-04-20 09:09] VITALS: BMI 35.2
[2024-04-22 10:04] VITALS: BP 145/96; PULSE 72; RESP 18; TEMP 36.2; O2SAT 97
[2024-04-22] MEDS: LACTATED RINGERS 1,000 ML 150 ML IV CONT (10:14)
--- NOTE | 2024-04-22 10:26 | WPDANESEPPF ---
Anes - Initial Pre Proc Eval Procedure: Operation Date: 04/22/24 11:30 Proposed Procedures p Esophagogastroduodenoscopy - Mike Ballard MD Date/Time: 04/22/24 10:26 Surgeon: Mike Ballard MD Pre Op Diagnosis: GERD Patient Data Age: 63 Gender: F Height: 1.55 m Weight: 84.8 kg Last Vital Signs Temp 36.2 C L 04/22/24 10:04 Pulse 72 04/22/24 10:04 Resp 18 04/22/24 10:04 BP 145/96 H 04/22/24 10:04 Pulse Ox 97 04/22/24 10:04 O2 Del Method Room Air 04/22/24 10:04 Allergies Allergy/AdvReac Type Severity Reaction Status Date / Time No Known Allergies Allergy Verified 04/22/24 10:02 Home Medications ?Medication ?Instructions ?Recorded ?Confirmed ?Type aspirin 81 mg tablet,delayed 81 mg PO DAILY #30 tabs 05/14/23 04/22/24 Rx release nitroglycerin 0.4 mg sublingual 0.4 mg sublingual Q5M PRN chest 05/14/23 04/20/24 Rx tablet pain #25 tabs ergocalciferol (vitamin D2) 1,250 1,250 mcg PO WEEKLY #12 caps 06/02/23 04/22/24 Rx mcg (50,000 unit) capsule metoprolol tartrate 25 mg tablet 12.5 mg (1/2 x 25 mg) PO BID #180 01/22/24 04/22/24 Rx tabs omeprazole 40 mg capsule,delayed 40 mg PO DAILY #30 caps 04/08/24 04/22/24 Rx release Patient hx anesthesia problems: none Family hx anesthesia problems: none Results Review: All pre-operative results and documents have been reviewed as part of the pre-operative evaluation. [facility] Past Medical History Medical History Obese Dysphagia Mild congestive heart failure QT prolongation Non-ST elevation myocardial infarction (NSTEMI) (~06/18/20) Acute non-ST elevation myocardial infarction (NSTEMI) Normal colonoscopy (~2012) Chronic back pain Cervical spondylosis Thyroid nodule Surgical History Surgical History No history of previous surgery Family History Family History Father due to congestive heart failure Mother Alive and well age 96, might have hypertension Other Cerebrovascular accident Family history of congestive heart failure Social History Social History Social History: The patient is and lives in [place]. They have 2 grown children. 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 She designates her Devan as her surrogate decision maker and she wishes to be a full code. Smoking status: Never smoker Alcohol intake: never Substance use: never Substance use type: does not use Lack of Transportation: No Lack of Food: Never True Current Housing: I Have Housing Concerned About Future Housing: No Difficulty Paying Gas/Electric Bills: No Difficulty Paying for Meds: No Currently Unemployed: No Difficulty w/ Childcare or Family Care: No Living arrangements: with family Gender identity (if verbalized by the patient): Female Spiritual care concerns: No Agree to blood products: Yes Anes - Eval Final PreProcedure Day of Procedure 04/22/24 10:26 Patient weight: obese Heart: regular rate and rhythm Lungs: clear to auscultation Airway: Mallampati scale class II Neurological: alert and oriented Last oral intake: >/= 8 hours ASA classification: III Emergent: no Anesthetic plan: proceed Anesthesia type and monitoring: general GIVS and standard monitoring Results Review: All pre-operative results and documents have been reviewed as part of the pre-operative evaluation. Informed Consent: The patient's anesthetic plan and its attendant risks and benefits were discussed with the patient/family/POA. Questions were solicited and answers provided to the satisfaction of the patient/family/POA.
--- NOTE | 2024-04-22 10:28 | WPDHPUPDATE1 ---
History and Physical Update Update Date/Time: 04/22/24 10:28 History and Physical has been reviewed, including an updated exam of the patient. There are NO changes in the patient's condition. Risks, benefits, and alternatives have been discussed and questions answered. Patient agrees to proceed with procedure.
[2024-04-22 10:41] VITALS: BP 165/82; PULSE 74; RESP 18; O2SAT 97
[2024-04-22 10:51] VITALS: BP 130/74; PULSE 64; RESP 18; O2SAT 98
[2024-04-22 11:01] VITALS: BP 157/77; PULSE 70; RESP 16; O2SAT 98
--- OUTSIDE RECORDS SUMMARY | 2024-04-23 21:04 | XMS_ITS | Clinical Summary ---
Author Organization [facility] [address] Address [address] [place] [address] Care Team Providers Care Ophthalmic Technician Apprentice Name Role Phone Jeanna Zabala MD Primary Care Provider [phone] Allergies No known active allergies Medications ergocalciferol (VITAMIN D) 50,000 unit capsule 3 Active albuterol HFA (PROVENTIL HFA,VENTOLIN HFA,PROAIR HFA) 90 mcg/actuation inhalerIndicatio ns:Wheezing Inhale 2 puffs every 6 (six) hours as needed for wheezing 1 each 3 Active Additional Information Patient not taking.Reported on 02/05/2024 cyclobenzaprine (FLEXERIL) 10 mg tablet Take 1 tablet (10 mg total) by mouth 3 (three) times a day as needed for muscle spasms 20 tablet 3 Active Additional Information Patient not taking.Reported on 02/05/2024 lidocaine (LIDODERM) 5 % Place 1 patch on the skin daily as needed for pain for up to 15 days Remove & discard patch within 12 hours or as directed by . 15 patch 3 Active Additional Information Patient not taking.Reported on 02/05/2024 aspirin 81 mg enteric coated tablet Take 1 tablet (81 mg total) by mouth daily Active nitroglycerin (NITROSTAT) 0.[address] 1 TABLET UNDER THE TONGUE EVERY 5 MINUTES NEEDED FOR CHEST PAIN Active omeprazole (PriLOSEC) 20 mg capsule Take 1 capsule (20 mg total) by mouth daily 4 Active metoprolol tartrate (LOPRESSOR) 25 mg immediate release tablet Take 0.5 tablets (12.5 mg total) by mouth daily 4 Active cyanocobalamin (Vitamin B-12) 100 mcg tabletIndication s:Prevention of Vitamin B12 Deficiency Take 1 tablet (100 mcg total) by mouth daily Active meloxicam (MOBIC) 15 mg tablet Take 1 tablet (15 mg total) by mouth daily as needed for pain Take with food 30 tablet 4 Active Additional Information Patient not taking.Reported on 02/05/2024 lisinopriL (PRINIVIL,ZESTRI L) 5 mg tabletIndication s:Essential hypertension Take 1 tablet (5 mg total) by mouth daily 30 tablet 11 4 025 Active pravastatin (PRAVACHOL) 80 mg tabletIndication s:Hyperlipidemia LDL goal <70 Take 1 tablet (80 mg total) by mouth daily 30 tablet 11 4 025 Active azithromycin (ZITHROMAX) 250 mg tabletIndication s:Acute bronchitis, unspecified organism Take 2 tabs (500 mg) by mouth today, than 1 tab (250 mg) daily for 4 days. 6 tablet 4 024 benzonatate (TESSALON) 200 mg capsuleIndicatio ns:Acute bronchitis, unspecified organism Take 1 capsule (200 mg total) by mouth 3 (three) times a day as needed for cough for up to 7 days 20 capsule 4 024 methylPREDNISolo ne (MEDROL DOSEPACK) 4 mg DosepackIndicati ons:Acute bronchitis, unspecified organism Take as directed on package. 21 tablet 4 024 Active Problems Problem Noted Date Diagnosed Date Severe obesity 02/05/2024 H/O non-ST elevation myocardial infarction (NSTE SD) 09/06/2020 Coronary artery disease invo lving cahto coronary artery of cahto heart without angina pectoris 09/06/2020 Essential hypertension 09/06/2020 Other hyperlipidemia 09/06/2020 GERD (gastroesophageal reflux disease) 1 Encounters Date Type Department Care Team Description 03/24/2024 10:15 AM TYPING POOL SUPERVISOR Office Visit [facility] at [address] [address] Rowena Merida NP Acute bronchitis, unspecified organism (Primary Dx) 02/07/2024 Orders Only [facility] [address] [place] [address] Amita Chowdhury NP Hyperlipidemia LDL goal <70 (Primary Dx) 02/05/2024 8:30 AM TYPING POOL SUPERVISOR Office Visit [facility] [address] [place] [address] Amita Chowdhury NP Coronary artery disease involving cahto coronary artery of cahto heart without angina pectoris (Primary Dx); Other hyperlipidemia; Essential hypertension from Last 3 Months Medical History Medical History Date Comments Arrhythmia Acid reflux Family History Medical History Relation Name Comments Heart attack Father Barry Moeller Heart disease Father Barry Moeller Hyperlipidemia Father Barry Moeller Hypertension Father Barry Moeller Stroke Father Barry Moeller Arthritis Other Gout Other Relation Name Status Comments Brother Alive Father Barry Moeller (Age 74) Mother Alive Other Social History Tobacco Use Types Packs/Day Years Used Date Smoking Tobacco: Never Smokeless Tobacco: Never Tobacco Cessation:Counseling Given: Not Answered AUDIT-C Answer Date Recorded Q1: How often do you have a drink containing alc ohol? Never 07/05/2020 Average Number of Drinks Not on file 021 Frequency of Binge Drinking Not on file 08/2020 Comments Unknown Sex and Gender Information Value Date Recorded Sex Assigned at Not on file Legal Sex Female 3:22 AM TYPING POOL SUPERVISOR Gender Identity Female 09/06/2020 10:47 AM CDT Sexual Orientation Straight 09/06/2020 10 :47 AM CDT Obstetrics History Last Filed Vital Signs Vital Sign Reading Time Taken Comments Blood Pressure 155/86 03/24/2024 10:23 AM TYPING POOL SUPERVISOR Pulse 77 03/24/2024 10:23 AM TYPING POOL SUPERVISOR Temperature 36.8 ??C (98.3 ??F) 03/24/2024 10:[address] Respiratory Rate 20 03/24/2024 10:23 AM TYPING POOL SUPERVISOR Oxygen Saturation 97% 03/24/2024 10:23 AM TYPING POOL SUPERVISOR Inhaled Oxygen Concentration - - Weight 84.4 kg (186 lb) 03/24/2024 10:23 AM TYPING POOL SUPERVISOR Height 149.9 cm (4' 11 ) 03/24/2024 10:23 AM TYPING POOL SUPERVISOR Body Mass Index 37.57 03/24/2024 10:23 AM TYPING POOL SUPERVISOR Plan of Treatment Health Maintenance Due Date Last Done Comments Breast Cancer Screening-Mammogram 1960 Cervical Cancer Screening 1958 Colon Cancer Screening-Colonoscopy 1960 Depression Screening 1958 Fall Risk Assessment 1958 Hepatitis C Screening 1958 Osteoporosis Screening-Bone Density Scan 1958 DTaP/Tdap/Td Vaccine (1 - Tdap) 1969 Hepatitis B Screening 1976 Zoster Vaccine (1 of 2) 2008 Covid-19 Vaccine (2 - season) 2023 Influenza Vaccine (#1) 2023 Pneumococcal vaccine 65+ (1 of 1 - PCV) 12/17/2023 Well Visit 65+ 12/17/2023 Procedures Procedure Name Priority Date/Time Associated Diagnosis Comments LIPID PANEL Routine 02/05/2024 12:14 PM TYPING POOL SUPERVISOR Other hyperlipidemia from Last 3 Months Results * (ABNORMAL) Lipid panel (02/05/2024 12:14 PM TYPING POOL SUPERVISOR) Cholesterol 240(H) 100 - 199 mg/dL [facility] - 01 Triglycerides 192(H) 0 - 149 mg/dL [facility] - 01 HDL Cholesterol 51 >39 mg/dL [facility] - 01 VLDL 35 5 - 40 mg/dL [facility] - 01 LDL, calculated 154(H) 0 - 99 mg/dL [facility] - 01 Blood 02/05/2024 12:1 4 PM TYPING POOL SUPERVISOR 02/05/2024 Narrative [facility] - 02/06/2024 11:13 AM TYPING POOL SUPERVISOR Performed at: ??01 - [facility] [address] ??[id number] [employer] Supervisor: Demetrius Castro PhD, Phone: ??[phone] us Amita Chowdhury BUSINESS SUPPORT LIAISON LAB BLOOD ORDERABLES Final R esult [facility] - 01 from Last 3 Months Insurance [employer] MEDICARE Care Teams Ophthalmic Technician Apprentice Relationship Specialty Start Date End Date Jeanna Zabala MD [address] [place] [address] PCP - General Family Medicine 02/05/24
--- OUTSIDE RECORDS SUMMARY | 2024-04-23 21:04 | XMS_ITS | Data Portability ---
Author Organization [employer], Main Office Address [address] [place] [address] Care Team Providers Care Facility Sales And Admin Name Role Phone JOSLYN PAYNE Primary Care Provider Assessment No assessment recorded. Plan of Treatment Reminders Order Date Submit Date Provider Last Modified By Organization Details Last Modified Time Details Appointments None record ed. Lab None record ed. Referral None record ed. Procedures None record ed. Surgeries None record ed. Imaging None record ed. Medication Orders None record ed. Patient TargetsNo targets recorded. Patient InstructionsNo instructions recorded. Reason for Referral None Reported. Problems Name Problem SNOMED Code Status Onset Date Resolution Date Notes Provider Name and Address Organization Details Recorded Time Impacted cerumen in left ear [id number] 1 Active 2023 Fareed Peguero MD [address] [facility] [address], [place], [address] [facility] [employer] 4 11:50:03 Problem Notes None recorded. Medical Equipment None Reported. Allergies No known drug allergies Medications Name Sig Start Date Stop Date Status Note LastModified by Organization Details LastModified Time promethazine-D M 6.25 mg-15 mg/5 mL oral syrup TAKE 5-10 ML (ORAL) EVERY 6 HOURS FOR 7 DAYS NEEDED FOR COUGH active Not Available Not Available No t Available azithromycin 250 mg tablet TAKE 2 TABLETS BY MOUTH TODAY, THEN TAKE 1 TABLET DAILY FOR 4 DAYS DIRECTED active Not Available Not Available No t Available aspirin 81 mg tablet,delayed release Take 1 tablet every day by oral route. active Not Available Not Available No t Available benzonatate 100 mg capsule TAKE 1 CAPSULE (ORAL) EVERY 8 HOURS FOR 10 DAYS NEEDED FOR COUGH SP: DR. MICKEY GRAHAM active Not Available Not Available No t Available nitroglycerin 0.4 mg sublingual tablet DISSOLVE 1 TABLET UNDER THE TONGUE EVERY 5 MINUTES NEEDED FOR CHEST PAIN. DO NOT EXCEED 3 DOSES PER EPISODE active Not Available Not Available No t Available omeprazole 20 mg capsule,delaye d release TAKE 1 CAPSULE BY MOUTH DAILY active Not Available Not Available No t Available ergocalciferol (vitamin D2) 1,250 mcg (50,000 unit) capsule TAKE 1 CAP BY MOUTH WEEKLY active Not Available Not Available No t Available methylpredniso lone 4 mg tablets in a dose pack TAKE 6 TABLETS ON DAY 1 DIRECTED ON PACKAGE AND DECREASE BY 1 TAB EACH DAY FOR A TOTAL OF 6 DAYS active Not Available Not Available No t Available metoprolol tartrate 25 mg tablet TAKE 1/2 TABLET BY MOUTH EVERY DAY active Not Available Not Available No t Available metoprolol succinate active Not Available Not Available No t Available Vitals Date Recorded Body height Body mass index (BMI) Body weight Body temperature Provider Name and Address Organization Details Last Updated DateTime 08/14/2023 154.94 cm 36.3 kg/m2 63509.74 g 97.7 [degF] Aaliyah Haskins RN [facility] [employer] 08/14/2023 11:18:25 Social History Question Answer Notes LastModified by Organizat ion Details LastModified Time Tobacco Smoking Status Never Smoker Aaliyah Haskins RN null, [facility] [employer] 08/14/2023 11:17:14 What Is Your Level Of Alcohol Consumption? None [email or web address] Information not available 08/14/2023 Sex: Unknown Functional Status None recorded. Mental Status None recorded. Family History Relationship Description Onset Age of this Age Resolved Age Notes LastModified by Organization Details LastModified Time Father No current problems or disability [email or web address] Not available 08/13 11:16:49 Mother No current problems or disability [email or web address] Not available 08/13 11:16:49 Notes:NO ENT Medical History No medical history recorded. Gynecological HistoryNo gynecological history recorded. Obstetrics History GPAL:G 0 P 0 0 0 0 Past Encounters Encounter ID Performer Location Encounter Start Date Encounter Closed Date Diagnosis/Indication Diagnosis SNOMED-CT Code Diagnosis ICD10 Code Diagnosis Note [id number] Fareed Peguero MD [facility] Coreas [address] [place] [address] 08/14/2023 11:06:10 08/14/2023 13:46:15 Impacted cerumen in left ear 0518077886 996006 H61.22 Health Concerns Section Related Observation LastModified by Organization Detai ls LastModified Time None Recorded Concern Status LastModified by Organization Details LastModified Time None Recorded Advance Directives Directive None Recorded Payers Encounter Date Sequence Insurance Name Policy Number Policy Osei Covered Member ID Osei Member ID Guarantor Name 08/14/2023 1 [employer] [facility] (O) Juliana Mcnulty [id number] Juliana Mcnulty Notes Date Note Type Note Provider Name and Address Organization Details Recorded Time 08/14/2023 text/html the patient is here for left cerumen impaction Fareed Peguero MD [address] [address], [place], [address], [facility] [employer] [facility] 08/14/2023 11:50:32 OBGyn Episode No OBEpisode recorded.
--- OUTSIDE RECORDS SUMMARY | 2024-04-23 21:04 | XMS_ITS | Data Portability ---
Author Organization [place] [facility], [facility] - [facility] Address [address] [place] [address] Care Team Providers Care Industrial Electrical Technician Name Role Phone JOSLYN PAYNE Primary Care Provider [phone] Assessment Encounter Date Assessment Date Assessment LastModified by Organization Details LastModified Time 08/10/2020 08/10/2020 59 year old female patient presents with plantar fasciitis to right foot and onychomycosis to right great toe. PLANTAR FASCIITIS on exam, pain to palpation to the lateral calcaneal tubercle of the right foot. Pain with [id number] compression of the calcaneus. Right for the x-rays of pain were negative for fractures or dislocations. No heel spurs identified. Reviewed with patient plantar fasciitis as well as conservative treatment options including stretching, ice, rest, orthotics, supportive shoes and injections. Dispensed patient information sheet with exercises included. Rx: Medrol Dose Dayron ONYCHOMYCOSIS R1 nail I explained to the patient the diagnosis, prognosis, etiology and treatment options for onychomycosis including no treatment, oral and topical medications, Cutera laser therapy, periodic debridement, phenol matrixectomy for permanent nail removal, and temporary nail avulsion followed by use of topical antifungal medication. Rx: Jublia topical nail solution *instructed patient on use.* [email or web address] Not available 08/11/2020 10:48:50 Plan of Treatment Reminders Order Date Submit Date Provider Last Modified By Organization Details Last Modified Time Details Appointments None recorded. Lab None recorded. Referral None recorded. Procedures None recorded. Surgeries None recorded. Imaging None recorded. Medication Orders Medrol (Dayron) 4 mg tablets in a dose pack 2020 021 [id number], [address] [facility], [place], [place], [id number], 09:55:04 Jublia 10 % topical solution with applicator 2020 021 [facility], [address] [facility] [address], [place], [address], 09:59:35 Patient TargetsNo targets recorded. Patient Instructions Encounter Date Encounter Id Patient Instructions Last Modified By Organization Details Last Modified Time 08/10/2020 [id number] plantar fasciitis: care instructions [email or web address] Not available 08/10/2020 09:54:58 plantar fasciitis: exercises Not available 08/10/2020 09:54:58 toenail fungus: care instructions Not available 08/10/2020 09:59:33 Reason for Referral None Reported. Problems No Known Problems Procedures Surgical History Date Name Laterality Status Provider Name and Address Organization Details Recorded Time 08/10/2020 [id number] X-rays 2v Feet Normal completed Kay Kilpatrick DPM [address] [place], [address], [facility] 08/11/2020 10:40:36 Imaging Results None recorded. Procedure Notes None recorded. Medical Equipment None Reported. Allergies No known drug allergies Medications Name Sig Start Date Stop Date Status Note LastModified by Organization Details LastModified Time atorvastatin 40 mg tablet TAKE 1 TABLET BY MOUTH DAILY active Not Available Not Available Not Available doxycycline hyclate 100 mg capsule TK 1 C PO D active Not Available Not Availab le Not Available metoprolol succinate ER 50 mg tablet,exten ded release 24 hr TAKE 1 TABLET BY MOUTH EVERY MORNING active Not Available Not Available No t Available isosorbide mononitrate ER 30 mg tablet,exten ded release 24 hr TAKE 1 TABLET BY MOUTH EVERY MORNING active Not Available Not Available No t Available clopidogrel 75 mg tablet TAKE 1 TABLET BY MOUTH EVERY MORNING active Not Available Not Available No t Available ciprofloxaci n 250 mg tablet TAKE 1 TABLET BY MOUTH EVERY 12 HOURS active Not Available Not Available No t Available aspirin 81 mg tablet,delay ed release TAKE 1 TABLET BY MOUTH DAILY active Not Available Not Available Not Available nitroglyceri n 0.[address] 1 TABLET UNDER THE TONGUE EVERY 5 MINUTES NEEDED FOR CHEST PAIN active Not Available Not Available N ot Available lisinopril 5 mg tablet TAKE 1 TABLET BY MOUTH EVERY MORNING active Not Available Not Available No t Available methylpredni solone 4 mg tablets in a dose pack FOLLOW PACKAGE DIRECTIONS active Not Available Not Available N ot Available Jublia 10 % topical solution with applicator APPLY TO AFFECTED TOENAIL(S) BY TOPICAL ROUTE ONCE DAILY 2020 active Not Available Not Available Not Avai lable Vitals Date Recorded Body height Body mass index (BMI) Body weight Provider Name and Address Organization Details Last Updated DateTime 08/10/2020 157.48 cm 32.6 kg/m2 95877.44 g Alecia Cornell [facility] 08/10/2020 09:45:56 Social History None recorded. Functional Status None recorded. Mental Status None recorded. Family History Relationship Description Onset Age of this Age Resolved Age Notes LastModified by Organization Details LastModified Time Father Heart disease [email or web address] Not available 2020 09:46:20 Medical History Condition Response Tuberculosis or TB N Heart Problems N Ulcers on Legs or Feet N Coronary Artery Disease N HIV or AIDS N Seizure Disorder N Gout N High Blood Pressure Y Clot in Lung or Pulmonary Embolism N Menopause N Lung Condition N Phlebitis or Venous Blood Clot N Migraines N Depression N Pacemaker N Anemia N Back Pain Y Neurologic Disease N Sciatica N Heart Attack ([place]) Y Diabetes N Urinary Tract Infections N Anxiety Disorder N Bleeding Disorder N Arthritis N Abuse of Alcohol or Drugs N Back injury N Ear Problems N Cancer N Dementia N Eye Problems N Stroke N Stomach Problems N Peripheral Vascular Disease N Sinus Conditions N Broken Bone N Thyroid Disorder N High Cholesterol N Hepatitis N Liver Disease N Heart Disease N Rheumatoid Arthritis N Rash N Osteoporosis N Kidney Disease N Gynecological HistoryNo gynecological history recorded. Obstetrics History GPAL:G 0 P 0 0 0 0 Past Encounters Encounter ID Performer Location Encounter Start Date Encounter Closed Date Diagnosis/Indication Diagnosis SNOMED-CT Code Diagnosis ICD10 Code Diagnosis Note [id number] Kay Kilpatrick DPM [address] [address] 08/10/2020 09:17:31 08/10/2020 10:18:36 Plantar fasciitis 202859818 M72.2 RIGHT Onychomycosis 025315234 B35.1 Pain in right foot 17340 67809 03937 M79.671 Health Concerns Section Related Observation LastModified by Organization Detai ls LastModified Time None Recorded Concern Status LastModified by Organization Details LastModified Time None Recorded Advance Directives Directive None Recorded Payers Encounter Date Sequence Insurance Name Policy Number Policy Osei Covered Member ID Osei Member ID Guarantor Name 08/10/2020 1 [facility] [id number] Sami Mcnulty [id number] Juliana Mcnulty Notes Date Note Type Note Provider Name and Address Organization Details Recorded Time 08/10/2020 text/html Heel Pain--Reported bypatient.Locatio n:right bottom of the heel Nature of Pain:sharp and stabbing; aching; throbbing Duration:2 weeks; continuous since onset Onset:denies any injury; just started to hurt all of the sudden one day Course:about the same Aggravating Factors:walking; weightbearing; pain is worst when getting up out of bed in the morning; standing up after a period of rest Allevating Factors:rest Prior Imaging:none Kay Kilpatrick DPM [address] [place], [address], [facility] 08/11/2020 10:49:41 OBGyn Episode No OBEpisode recorded.
--- OUTSIDE RECORDS SUMMARY | 2024-04-23 21:04 | XMS_ITS | Referral Summary ---
Author Organization [facility] [address] [address] [place] [address] Care Team Providers Care Point Of Care Specialist Name Role Phone Jeanna Zabala MD Primary Care Provider [phone] Encounters Date Type Department Care Team Description 03/24/2024 10:15 AM ROOM INSPECTOR Office Visit [facility] Care at [address] [phone] Rowena Merida NP Acute bronchitis, unspecified organism (Primary Dx) 02/07/2024 Orders Only [facility] Cardiology [address] [place] [phone] Amita Chowdhury NP Hyperlipidemia LDL goal <70 (Primary Dx) 02/05/2024 8:30 AM ROOM INSPECTOR Office Visit 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 15 patch 3 Active Additional Information Patient [...] mg total) by mouth daily 30 tablet 4 025 Active pravastatin (PRAVACHOL) 80 mg [...] 02/05/2024 H/O non-ST elevation myocardial infarction (NSTE NC) 09/06/2020 Coronary artery disease invo lving napaimute coronary artery of napaimute heart without angina pectoris 09/06/2020 Essential hypertension 09/06/2020 Other hyperlipidemia 09/06/2020 GERD (gastroesophageal reflux disease) Social History Tobacco Use Types Packs/Day Years [...] on file Legal Sex Female 3:22 AM ROOM INSPECTOR Gender Identity Female 09/06/2020 10:47 AM CDT Sexual Orientation Straight 09/06/2020 10 :47 AM CDT Last Filed Vital Signs Vital Sign Reading Time Taken Comments Blood Pressure 155/86 03/24/2024 10:23 AM ROOM INSPECTOR Pulse 77 03/24/2024 10:23 AM ROOM INSPECTOR Temperature 36.8 ??C (98.3 ??F) 03/24/2024 10:[address] Respiratory Rate 20 03/24/2024 10:23 AM ROOM INSPECTOR Oxygen Saturation 97% 03/24/2024 10:23 AM ROOM INSPECTOR Inhaled Oxygen Concentration - - Weight 84.4 kg (186 lb) 03/24/2024 10:23 AM ROOM INSPECTOR Height 149.9 cm (4' 11 ) 03/24/2024 10:23 AM ROOM INSPECTOR Body Mass Index 37.57 03/24/2024 10:23 AM ROOM INSPECTOR Plan of Treatment Not on file Procedures Procedure Name Priority Date/Time Associated Diagnosis Comments LIPID PANEL Routine 02/05/2024 12:14 PM ROOM INSPECTOR Other hyperlipidemia from Last 3 Months Results * (ABNORMAL) Lipid panel (02/05/2024 12:14 PM ROOM INSPECTOR) Cholesterol 240(H) 100 - 199 mg/dL [facility] - 01 Triglycerides 192(H) 0 - 149 mg/dL [facility] - 01 HDL Cholesterol 51 >39 mg/dL [facility] - 01 VLDL 35 5 - 40 mg/dL [facility] - 01 LDL, calculated 154(H) 0 - 99 mg/dL [facility] - 01 Blood 02/05/2024 12:1 4 PM ROOM INSPECTOR 02/05/2024 Narrative [facility] - 02/06/2024 11:13 AM ROOM INSPECTOR Performed at: ??01 - [facility] [address] ??[id number] Data Reduction Technician: Demetrius Castro PhD, Phone: ??[phone] Amita Chowdhury NP LAB BLOOD ORDERABLES Final R esult [facility] - 01 from Last 3 Months Insurance [facility] MEDICARE Care Teams Point Of Care Specialist Relationship Specialty Start Date End Date Jeanan Zabala MD [address] [place] [address] PCP - General Family Medicine 02/05/24
== END 2024-04-22 11:27 | disposition home or self-care (01) ==
PROVIDERS: PCP Family Medicine; Referring Provider Nurse Practitioner; Visit Provider Internal Medicine Gastroenterology
PROC: 0DJ08ZZ Inspection of Upper Intestinal Tract, Via Natural or Artificial Opening Endoscopic (ICD-10-PCS; CPT 43239; principal; 2024-04-22 11:30)
DX: K21.00 Gastro-esophageal reflux disease with esophagitis, without bleeding (principal); I50.9 Heart failure, unspecified; G89.29 Other chronic pain; M54.9 Dorsalgia, unspecified; M43.02 Spondylolysis, cervical region; I25.2 Old myocardial infarction; E66.9 Obesity, unspecified; Z68.35 Body mass index [BMI] 35.0-35.9, adult; Z79.82 Long term (current) use of aspirin; Z82.49 Family history of ischemic heart disease and other diseases of the circulatory system
CPT/HCPCS: 43239; 88305; J2704; J7120